=== PATIENT | male | born 1975 | race Caucasian/White ===

== ENCOUNTER 2019-06-02 07:38 | Outpatient (CLI) | payer MEDICAID, SELFPAY ==
--- NOTE | 2019-06-02 07:46 | US_ITS ---
WS: [id number] ULTRASOUND ABDOMEN LIMITED CLINICAL INFORMATION: RUQ ABD PAIN COMPARISON: None. FINDINGS: Liver Size: Normal. Craniocaudal length: 14.4 cm. Echogenicity: Normal. Surface nodularity: None. Mass (size and location): None. Bile ducts Intrahepatic ducts: Normal. Common bile duct diameter: 2.4 mm. Gallbladder Normal. Gallstones: None. Gallbladder sludge: None. Gallbladder wall thickening: None. Pericholecystic fluid: None. Sonographic Kay sign: Absent. Pancreas Normal as visualized. Right kidney: Normal. Hydronephrosis: None. Size: 12.5 cm x 4.1 cm x 4.0 cm. Abdominal aorta and IVC Visualized portions are normal. Ascites: None. US/US gall bladder [id number] IMPRESSION: 1. Liver is normal. No intrahepatic biliary ductal dilatation. 2. Normal gallbladder. 3. No hydronephrosis in right kidney. 4. Normal common bile duct.
== END 2019-06-02 07:39 | disposition home or self-care (01) ==
PROVIDERS: Family Provider Family Medicine; PCP Family Medicine; Visit Provider Family Medicine
DX: R10.11 Right upper quadrant pain (principal)
CPT/HCPCS: 76705

== ENCOUNTER 2020-01-20 13:57 | Emergency (ER) | payer MEDICAID, SELFPAY ==
[2020-01-20 14:01] VITALS: BP 130/84; PULSE 90; RESP 18; TEMP 36.8; O2SAT 97; BMI 23.5
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
[2020-01-20] MEDS: clindamycin 150 mg Capsule 300 MG PO (14:41)
--- NOTE | 2020-01-22 12:32 | DCPLANNER ---
leadership development manager had message to schedule a follow up appointment for patient with Wound Care. leadership development manager called the Wound Care clinic, spoke with Ignacia, gave clinic patients information. A follow up appointment was scheduled for Wednesday, January 24, 2020 at 1:00 with [employer] TECHNICI[employer]bil. leadership development manager called patient and gave patient the appointment information. Patient stated that he would attend the appointment.
--- NOTE | 2020-02-12 09:37 | DCPLANNER ---
Patient had a follow up appointment scheduled for 01.24.20 with Wound Care - patient did attend appointment.
== END 2020-01-20 14:45 | disposition home or self-care (01) ==
LOC: ER 14:36
PROVIDERS: Emergency Provider Emergency Medicine; PCP Family Medicine
DX: T65.894A Toxic effect of other specified substances, undetermined, initial encounter (principal); T24.412A Corrosion of unspecified degree of left thigh, initial encounter; T23.421A Corrosion of unspecified degree of single right finger (nail) except thumb, initial encounter; E11.9 Type 2 diabetes mellitus without complications
CPT/HCPCS: 12345; 99281

== ENCOUNTER 2020-01-24 13:11 | Outpatient (CLI) | payer MEDICAID, SELFPAY | END 2020-01-24 13:12 | disposition home or self-care (01) | LOC: WOUND 13:11 | PROVIDERS: PCP Family Medicine; Visit Provider Nurse Practitioner Family | DX: T24.222A Burn of second degree of left knee, initial encounter (principal); T23.241A Burn of second degree of multiple right fingers (nail), including thumb, initial encounter; T23.121A Burn of first degree of single right finger (nail) except thumb, initial encounter | CPT/HCPCS: 11042; 11045; 87070; 87077; 87176; 87186; 87205; G0463 ==

== ENCOUNTER 2020-01-31 10:15 | Outpatient (CLI) | payer MEDICAID, SELFPAY | END 2020-01-31 10:16 | disposition home or self-care (01) | LOC: WOUND 10:15 | PROVIDERS: PCP Family Medicine; Visit Provider Nurse Practitioner Family | DX: T24.202A Burn of second degree of unspecified site of left lower limb, except ankle and foot, initial encounter (principal); T23.241A Burn of second degree of multiple right fingers (nail), including thumb, initial encounter; T23.121A Burn of first degree of single right finger (nail) except thumb, initial encounter; X58.XXXA Exposure to other specified factors, initial encounter | CPT/HCPCS: 11042 ==

== ENCOUNTER 2020-02-07 10:17 | Outpatient (CLI) | payer MEDICAID, SELFPAY | END 2020-02-07 10:18 | disposition home or self-care (01) | LOC: WOUND 10:18 | PROVIDERS: PCP Family Medicine; Visit Provider Surgery | DX: E10.622 Type 1 diabetes mellitus with other skin ulcer (principal); L97.822 Non-pressure chronic ulcer of other part of left lower leg with fat layer exposed | CPT/HCPCS: 99212 ==

== ENCOUNTER 2020-02-08 14:20 | Outpatient (CLI) | payer MEDICAID, SELFPAY ==
[2020-02-08 15:10] LABS: Estmated Average Glucose 286; Hemoglobin A1C 11.6 % (4.0-6.0)
[2020-02-08 15:20] LABS: Alanine Aminotransferase 35 U/L (0-41); Albumin Level 4.6 g/dL (3.5-5.2); Alkaline Phosphatase 96 IU/L (40-130); Anion Gap 12.5 (5-19); Aspartate Amino Transferase 24 U/L (0-40); Blood Urea Nitrogen 25 mg/dL (6-20); Calcium 9.6 mg/dL (8.5-10.5); Carbon Dioxide 28 mmol/L (22-29); Chloride 92 mmol/L (98-107); Chol HDL Ratio 2.98 mg/dL (1.0-5.00); Cholesterol 161 mg/dL (0-200); Globulin 2.3 g/dL (1.3-4.6); Glomerular Filtration Rate 72.4 mL/min (90-130); Glucose 454 mg/dL (65-115); HDL Cholesterol 54 mg/dL (60-100); LDL Cholesterol Calculated 87 mg/dL (50-129); LDL HDL Ratio 1.61 RATIO (0.00-3.22); Osmolality Calculated 290 mOsm/kg (285-295); Potassium 4.5 mmol/L (3.5-5.1); Sodium 128 mmol/L (136-145); Total Bilirubin 0.4 mg/dL (0.15-1.2); Total Protein 6.9 g/dL (6.6-8.7); Triglycerides 101 mg/dL (0-150)
== END 2020-02-08 14:21 | disposition home or self-care (01) ==
LOC: LAB 14:22
PROVIDERS: PCP Family Medicine; Visit Provider Internal Medicine
DX: E10.22 Type 1 diabetes mellitus with diabetic chronic kidney disease (principal); N18.2 Chronic kidney disease, stage 2 (mild); E10.319 Type 1 diabetes mellitus with unspecified diabetic retinopathy without macular edema; E10.40 Type 1 diabetes mellitus with diabetic neuropathy, unspecified; E10.649 Type 1 diabetes mellitus with hypoglycemia without coma; Z79.4 Long term (current) use of insulin; E78.5 Hyperlipidemia, unspecified
CPT/HCPCS: 36415; 80053; 80061; 83036; 99205

== ENCOUNTER 2020-03-08 23:58 | Observation (INO) | payer MEDICAID, SELFPAY ==
[2020-03-09] VITALS (12 sets, daily range): BP systolic 125–197; BP diastolic 80–113; PULSE 79–98; RESP 14–23; TEMP 36.1–36.8; O2SAT 97–99; BMI 22.2
--- NOTE | 2020-03-09 00:07 | ECG_ITS ---
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 Measurements Intervals [place] Rate: 89 P: 65 [place]: 154 QRS: 85 QRSD: 86 T: 57 QT: 328 QTc: 400 Interpretive Statements SINUS RHYTHM Compared to ECG 11/23/2018 04:32:49 No significant changes Electronically Signed On 03-09-2020 11:29:28 STUD SHEEP FARMER by Ling Euceda M.D. [id number]
--- NOTE | 2020-03-09 00:07 | XRR_ITS ---
PROCEDURE INFORMATION: Exam: XR Chest, 1 View Exam date and time: 03/09/2020 2:16 AM Age: 44 years old Clinical indication: Chest pain; Additional info: Cp TECHNIQUE: Imaging protocol: XR of the chest Views: 1 view. COMPARISON: CR Chest 1 [place] [id number] 11/22/2018 10:40 PM FINDINGS: Lungs: Unremarkable. No consolidation. Pleural space: Unremarkable. No pleural effusion. No pneumothorax. Heart/Mediastinum: Unremarkable. No cardiomegaly. Bones/joints: Unremarkable. XR/XR chest 1V portable [id number] IMPRESSION: No acute findings.
--- NOTE | 2020-03-09 00:15 | W.ED.CHESTPA ---
HPI - Chest Pain General: Chief Complaint: Chest Pain Stated Complaint: cp/high bp/right arm pain Time Seen by Provider: 03/09/20 00:09 Source: patient Mode of arrival: ambulatory Limitations: no limitations History of Present Illness: HPI narrative: Cheo is a nice 44-year-old male comes in complaining of chest pain. He describes as a severe pain across the right side of his chest. He has pain that radiates down his right arm. He had associated diaphoresis, nausea and fatigue. Patient checked his blood pressure during this episode and find it to be markedly elevated. Patient states the symptoms come and go and he is unaware of any exacerbating or alleviating factors. Patient states currently his pain is just barely present but not completely gone. Denies having anything similar to this in the past. Associated symptoms: Reports diaphoresis and nausea; Deny abdominal pain, dyspnea, fever(s), palpitations, syncope or vomiting Review of Systems Const: Reports: diaphoresis; Denies: fever(s), chills, body aches, fatigue or malaise Eyes: Denies: change in vision, blurry vision, photophobia, eye discomfort, eye discharge, eye redness or yellow eyes ENMT: Denies: throat pain, odynophagia, hoarseness, swelling of lips/tongue, ear or mastoid pain, ear discharge, change in hearing or nasal discharge Card: Reports: chest pain; Denies: palpitations, irregular heart rhythm, edema, lightheadedness, syncope, pre-syncope, dyspnea on exertion or orthopnea Resp: Denies: dyspnea, productive cough, non-productive cough, wheezing, hemoptysis or chest congestion GI: Reports: nausea; Denies: abdominal pain, vomiting, hematemesis, coffee ground emesis, heartburn, diarrhea, constipation, GI cramping, hematochezia or melena : Denies: flank pain, dysuria, urinary frequency, urinary urgency or hematuria Musc: Denies: neck pain, back pain, extremity pain, extremity swelling, joint pain, joint swelling, joint redness, joint warmth or joint stiffness Skin/Breast: Denies: rash, pruritus, erythema, skin pain or skin tenderness Neuro: Denies: headache(s), numbness in extremities, weakness in extremities, sensory changes, lack of coordination, difficulty walking, dizziness, vertigo, confusion, Slurred speech present or seizure-like activity Juan Carlos/Lymph: Denies: easy bruising, easy bleeding, petechiae, purpura or enlarged lymph nodes All/Imm: Denies: urticaria, throat swelling, tongue swelling, facial swelling or acute wheezing PFSH ED PFSH: Medical History (Updated 03/09/20 @ 02:15 by Cordelia Tompkins) Detached retina Hypertension Type 1 diabetes Surgical History History of detached retina repair Family History Mother Cancer thyroid and breast Social History Smoking and tobacco status: former smoker Alcohol intake: current Alcohol intake frequency: holidays/special occasions only Physical Exam Const: COMMON NORMALS: no acute distress, patient oriented x3, no limitations and alert GENERAL APPEARANCE: cooperative HENMT: COMMON NORMALS: normocephalic, atraumatic, external ears normal, EAC's normal and Normal external nose present HEAD & SCALP: normal to inspection, normocephalic and atraumatic FACE & SINUS: normal facial exam and face symmetric NOSE: Normal external nose present and Normal nares present EXTERNAL EAR: Yes external ears normal EXTERNAL AUDITORY CANAL: EAC's normal MOUTH: Normal oral and palatal mucosa present, lip normal and tongue normal Eye: COMMON NORMALS: Equal, round and reactive pupils present and conjunctivae normal GENERAL EYE: appearance normal, both eyes and all related structures ALIGNMENT: Yes alignment normal PERIORBITAL: periorbital findings normal EYELID: eyelids normal CONJUNCTIVA: Yes conjunctivae normal SCLERA: sclerae normal PUPIL: Yes Equal, round and reactive pupils present Neck/C-Spine: COMMON NORMALS: full ROM, no lymphadenopathy, supple, no meningeal signs and no JVD GENERAL: Yes normal visual inspection and Yes trachea midline Chest: COMMONS NORMALS: normal inspection of the chest and normal palpation of entire chest wall Resp: COMMON NORMALS: normal respiratory effort, No retractions, No use of accessory muscles and clear to auscultation bilaterally EFFORT & INSPECTION: Yes able to speak in complete sentences and Yes symmetric chest movement AUSCULTATION: clear to auscultation bilaterally, no crackles, no rales, no rhonchi and no wheezes Cardio: COMMON NORMALS: no JVD, regular rate, regular rhythm, S1 normal heart sound present and S2 normal heart sound present RATE: regular rate RHYTHM: regular rhythm HEART SOUNDS: S1 normal heart sound present, S2 normal heart sound present, no click, no gallops, no murmurs and no rubs GI: COMMON NORMALS: Soft to palpation and No hepatosplenomegaly present PALPATION: Yes Soft to palpation, No Tenderness to palpation present (GI), No Guarding due to palpation present (GI), No Rigid due to palpation, Yes No hepatosplenomegaly present, No Hernia present, No Palpable mass present and No Pulsatile mass present : COMMON NORMALS: Yes no CVA tenderness BLADDER/KIDNEY EXAM: Yes no CVA tenderness Back/Pelvis: COMMON NORMALS: no CVA tenderness, thoracic and lumbar spine normal to inspection, no thoracic nor lumbar tenderness and thoraco-lumbar ROM normal Extremity: COMMON NORMALS: normal to inspection, full ROM, capillary refill normal, no joint enlargement, no clubbing, cyanosis or edema and no calf tenderness Neuro: COMMON NORMALS: patient oriented x3, CN's II-XII intact bilaterally, moves all extremities, no focal motor deficits and no sensory deficits noted SENSORIUM/ORIENTATION: Yes alert MENINGEAL SIGNS: Yes no meningeal signs SPEECH: speech normal Psych: COMMON NORMALS: mental status grossly normal, Normal thought process present, cooperative, normal affect, speech normal and activity/motor behavior normal SPEECH: Yes normal speech THOUGHT PROCESS: Normal thought process present Skin: COMMON NORMALS: no rashes or lesions noted, turgor normal, no jaundice, no petechiae and no mottling GENERAL SKIN EXAM: no rashes or lesions noted and turgor normal Course Vital Signs: Vital signs: Vital Signs Temperature 98.3 F 03/09/20 00:01 Pulse Rate 89 03/09/20 02:05 Respiratory Rate 23 H 03/09/20 02:05 Blood Pressure 150/92 03/09/20 02:05 Pulse Oximetry 99 03/09/20 02:05 MDM - Chest Pain MDM Narrative: Medical decision making narrative: Cheo is a 44-year-old male who comes in complaining of chest pain. Pain is in the center of his chest radiates into the right shoulder and down his right arm. Associated diaphoresis and shortness of breath and nausea with this. Patient has a heart score of 7. First EKG showed nonspecific changes in V2 but reviewed with human resources executive she did not believe this to be an acute danger. Patient understands his risks for further heart related issue so he agrees to stay for further evaluation and care. The case was reviewed with Dr. Ivy and he is agreeable to admission. Lab Data: Attestation: I reviewed the patient's lab results. Labs: Lab Results 03/09/20 03/09/20 03/09/20 Range/Units 00:32 00:32 00:32 WBC 6.2 (4.0-10.0) 10^3/ uL RBC 3.82 L (4.1-5.3) 10^6/u L Hgb 12.0 (11.7-16.6) g/dL Hct 35.6 L (42.0-52.0) % MCV 93.2 (80-94) fL MCH 31.4 (28.0-34.0) pg MCHC 33.7 (30.0-36.0) g/dL RDW 11.8 L (12.1-15.1) % Plt Count 292 (130-400) 10^3/c mm MPV 10.8 H (7.4-10.4) fL Neut % (Auto) 52.6 % Lymph % (Auto) 33.4 % [place] % (Auto) 9.2 % Eos % (Auto) 3.7 % Baso % (Auto) 1.1 % Neut # (Auto) 3.27 (1.8-7.7) 10^3/u L Lymph # (Auto) 2.1 (0.8-4.8) 10^3/u L [place] # (Auto) 0.6 (0.2-0.9) 10^3/u L Eos # (Auto) 0.2 (0.0-0.8) 10^3/u L Baso # (Auto) 0.1 (0.0-0.1) 10^3/u L Nucleated RBC % (a uto) 0 % Nucleated RBCs # 0.0 /100WBC Sodium 138 (136-145) mmol/L Potassium 4.2 (3.5-5.1) mmol/L Chloride 101 (98-107) mmol/L Carbon Dioxide 28 (22-29) mmol/L Anion Gap 13.2 (5-19) BUN 14 (6-20) mg/dL Creatinine 0.9 (0.7-1.2) mg/dL GFR Calculation 91.3 (90-130) mL/min Glucose 319 H (65-115) mg/dL Calculated Osmolal ity 299 H (285-295) mOsm/k g Calcium 9.4 (8.5-10.5) mg/dL Magnesium 2.0 (1.7-2.3) mg/dL Total Bilirubin 0.2 (0.15-1.2) mg/dL AST 30 (0-40) U/L ALT 59 H (0-41) U/L Alkaline Phosphata se 114 (40-130) IU/L Troponin T Baselin e 20 H (0-15) ng/L Total Protein 6.2 L (6.6-8.7) g/dL Albumin 4.4 (3.5-5.2) g/dL Globulin 1.8 (1.3-4.6) g/dL Lipase 9 L (13-60) U/L Imaging Data^: CXR: Attestation: I personally reviewed and interpreted this imaging study as follows: My impression: No acute cardiopulmonary findings. EKG Data^: EKG 1: Attestation: I personally reviewed and interpreted this EKG as follows: EKG interpretation date: 03/09/20 EKG interpretation time: 00:17 Interpretation: Normal sinus rhythm at 89 beats a minute, no blocks, normal intervals, normal axis, nonspecific ST-T wave changes. Similar to previous. Confirmed with Dr. Euceda. EKG 2: Attestation: I personally reviewed and interpreted this EKG as follows: EKG interpretation date: 03/09/20 EKG interpretation time: 01:49 Interpretation: Normal sinus rhythm at 90 beats a minute, normal axis, no blocks, normal intervals, no acute ST-T wave changes. Discharge Plan Discharge Patient Disposition: Placed in Observation Clinical Impression: Chest pain Qualifiers: Chest pain type: unspecified Qualified Code(s): R07.9 - Chest pain, unspecified Condition: Stable Referrals: Harpal Montanez MD [Primary Care Provider] - Coding Level of Care Code ED Fan Mail Editor for g Fwd Exam Comprehensive
[2020-03-09] MEDS: aspirin 325 mg Tablet PO (00:49)
[2020-03-09] MEDS: nitroglycerin 0.4 mg sublingual Tablet SUBLINGUAL (00:50)
[2020-03-09 00:53] LABS: Basophils # 0.1 10^3/uL (0.0-0.1); Basophils % 1.1 %; Eosinophils # 0.2 10^3/uL (0.0-0.8); Eosinophils % 3.7 %; Hematocrit 35.6 % (42.0-52.0); Lymphocytes # 2.1 10^3/uL (0.8-4.8); Lymphocytes % 33.4 %; Mean Corpuscular HGB Conc 33.7 g/dL (30.0-36.0); Mean Corpuscular Hemoglobin 31.4 pg (28.0-34.0); Mean Corpuscular Volume 93.2 fL (80-94); Mean Platelet Volume 10.8 fL (7.4-10.4); Monocytes # 0.6 10^3/uL (0.2-0.9); Monocytes % 9.2 %; Neutrophils # 3.27 10^3/uL (1.8-7.7); Neutrophils % 52.6 %; Nucleated Red Blood Cells % 0 %; Platelet Count 292 10^3/cmm (130-400); Red Blood Count 3.82 10^6/uL (4.1-5.3); Red Cell Distribution Width 11.8 % (12.1-15.1); White Blood Count 6.2 10^3/uL (4.0-10.0)
[2020-03-09 01:15] LABS: Alanine Aminotransferase 59 U/L (0-41); Albumin Level 4.4 g/dL (3.5-5.2); Alkaline Phosphatase 114 IU/L (40-130); Anion Gap 13.2 (5-19); Aspartate Amino Transferase 30 U/L (0-40); Blood Urea Nitrogen 14 mg/dL (6-20); Calcium 9.4 mg/dL (8.5-10.5); Carbon Dioxide 28 mmol/L (22-29); Chloride 101 mmol/L (98-107); Globulin 1.8 g/dL (1.3-4.6); Glomerular Filtration Rate 91.3 mL/min (90-130); Glucose 319 mg/dL (65-115); Lipase 9 U/L (13-60); Osmolality Calculated 299 mOsm/kg (285-295); Potassium 4.2 mmol/L (3.5-5.1); Sodium 138 mmol/L (136-145); Total Bilirubin 0.2 mg/dL (0.15-1.2); Total Protein 6.2 g/dL (6.6-8.7); Troponin(5th) Baseline 20 ng/L (0-15)
--- NOTE | 2020-03-09 01:39 | ECG_ITS ---
[facility] Test Date: 2020-03-09 Pat Name: Cheo Martin Department: Room: Gender: Male Ground Intelligence Officer: : 1975 Requested By: Cordelia Matamoros Order Number: [id number] Saeed MD: Ling Euceda M.D. Measurements Intervals [place] Rate: 90 P: 61 [place]: 145 QRS: 85 QRSD: 89 T: 53 QT: 318 QTc: 390 Interpretive Statements SINUS RHYTHM Compared to ECG 11/23/2018 04:32:49 No significant changes Electronically Signed On 03-09-2020 11:29:07 MIRROR FINISHING MACHINE OPERATOR by Ling Euceda M.D. [id number]
[2020-03-09] MEDS: nitroglycerin 1 gm/inch oint Pkt 1 INCH TOPICAL (02:04)
--- NOTE | 2020-03-09 02:07 | ECG_ITS ---
[facility] Test Date: 2020-03-09 Pat Name: Cheo Martin Department: Room: 102 Gender: Male Recruiting Assistant: trinh YUB: 1975 Requested By: Cordelia Matamoros Order Number: [id number] Saeed MD: Ling Euceda M.D. Measurements Intervals [place] Rate: 82 P: 61 [place]: 151 QRS: 72 QRSD: 82 T: 52 QT: 325 QTc: 380 Interpretive Statements SINUS RHYTHM Compared to ECG 03/09/2020 01:49:45 No significant changes Electronically Signed On 03-09-2020 11:34:49 AGILE SCRUM MASTER by Ling Euceda M.D. [id number]
[2020-03-09 02:30] LABS: Add Urine Microscopic? NO
--- NOTE | 2020-03-09 02:37 | P.HP_ITS ---
Providers/Chief Complaint Primary Care Provider: Harpal Montanez MD Chief Complaint: cp/high bp/right arm pain History of Present Illness Cheo Martin is a 44 year old male with a past medical history of insulin- dependent type 1 diabetes, hypertension, hyperlipidemia, who presents to [facility] due to chest pain. Patient tells me that this evening, he just had finished up supper, was cleaning up when he developed severe substernal chest pain, pressure-like pain, radiating up to the right shoulder, to the back, associate with lightheadedness, dizziness, diaphoresis, shortness of breath, lasting about 4 minutes, the pain went away on its own. However a few minutes later, pain returned his who is a retired RN, checked up on him, she advised him to sit down, pain abated, she advised him to come to the emergency room, however patient stated that he would just watch some TV and the pain would go away. However he had 2 more episodes of chest pain before he decided to come to the emergency room. Denies a history of cardiovascular disease. Denies history of stenting. Does state he had a negative stress test about a year ago. Patient states that he received 3 nitro glycerin's, before the pain abated. Currently has a nitro patch on. States that currently having just very minimal pain. In the ER his troponin at baseline was 20, EKG normal sinus rhythm. Hospitalist team was called for admission Review of Systems Const: Denies: fever(s), chills, fatigue or malaise Eyes: Denies: change in vision or blurry vision ENMT: Denies: nasal congestion Card: Reports: chest pain and lightheadedness Resp: Denies: dyspnea, productive cough, non-productive cough or wheezing GI: Denies: abdominal pain, nausea, vomiting, hematemesis, diarrhea, constipation, hematochezia or melena : Denies: flank pain, difficulty urinating, dysuria or urinary frequency Musc: Denies: neck pain or back pain Skin/Breast: Denies: rash Neuro: Denies: headache(s), dizziness or vertigo Psych: Denies: anxiety or depression Endo: Denies: polyuria or polydipsia Medications/Allergies Home Medications Medication Instructions Recorded Confirmed Last Taken Type flash glucose scanning reader #1 each 02/08/20 02/08/20 Unknown Rx gabapentin 600 mg tablet 600 mg PO TID 02/08/20 02/08/20 Unknown History hydrochlorothiazide 25 mg tablet 25 mg PO DAILY 02/08/20 02/08/20 Unknown History insulin glargine 100 unit/mL (3 45 unit SUBCUT DAILY ml 02/08/20 02/08/20 Unknown History mL) subcutaneous pen insulin lispro 100 unit/mL See Rx Instructions SUBCUT TID 02/08/20 02/08/20 Unknown History subcutaneous pen lisinopril 10 mg tablet 10 mg PO BID 02/08/20 02/08/20 Unknown History simvastatin 10 mg tablet 10 mg PO DAILY 02/08/20 02/08/20 Unknown History valacyclovir 500 mg tablet 500 mg PO TID tab 02/08/20 02/08/20 Unknown History blood-glucose meter,continuous #1 each 02/29/20 Unknown Rx blood-glucose sensor #3 each 02/29/20 Unknown Rx blood-glucose transmitter #9 each 02/29/20 Unknown Rx Allergies Allergy/AdvReac Type Severity Reaction Status Date / Time Penicillins Allergy ALGY-Anaphy Verified 02/08/20 13:07 laxis PFSH Acute PFSH: Medical History (Updated 03/09/20 @ 02:43 by Ayad Ivy MD) Detached retina Hypertension Type 1 diabetes Surgical History History of detached retina repair Family History (Updated 03/09/20 @ 02:41 by Ayad Ivy MD) Mother Cancer thyroid and breast Unknown CAD (coronary artery disease) from [place] at 55 Social History Smoking and tobacco status: former smoker Alcohol intake: current Alcohol intake frequency: holidays/special occasions only Vitals/I&O/Wt Last Vital Signs Temp 98.3 F 03/09/20 00:01 Pulse 89 03/09/20 02:05 Resp 23 H 03/09/20 02:05 BP 150/92 03/09/20 02:05 Pulse Ox 99 03/09/20 02:05 Weight last 48 hrs Weight 64.41 kg Physical Exam Const: COMMON NORMALS: no acute distress and patient oriented x3 GENERAL APPEARANCE: cooperative and comfortable HENMT: COMMON NORMALS: normocephalic HEAD & SCALP: normocephalic Eye: COMMON NORMALS: Equal, round and reactive pupils present and EOMs intact bilaterally GENERAL EYE: appearance normal, both eyes and all related structures PUPIL: Yes Equal, round and reactive pupils present Neck/C-Spine: COMMON NORMALS: full ROM, no lymphadenopathy, no JVD and Thyroid normal THYROID: Thyroid normal Lymph: LYMPHATIC: no lymphadenopathy noted Resp: COMMON NORMALS: normal respiratory effort, No retractions, No use of accessory muscles and clear to auscultation bilaterally AUSCULTATION: clear to auscultation bilaterally Cardio: COMMON NORMALS: no JVD, regular rate, regular rhythm, S1 normal heart sound present, S2 normal heart sound present, No gallops present (Cardio), No clicks present (Cardio) and No murmurs present (Cardio) RATE: regular rate RHYTHM: regular rhythm HEART SOUNDS: S1 normal heart sound present and S2 normal heart sound present GI: COMMON NORMALS: Normal to inspection, nondistended, normoactive bowel sounds present, Soft to palpation, non-tender and No hepatosplenomegaly present PALPATION: Yes Soft to palpation and Yes No hepatosplenomegaly present Extremity: COMMON NORMALS: normal to inspection, full ROM and no pedal edema Neuro: COMMON NORMALS: patient oriented x3, CN's II-XII intact bilaterally, moves all extremities and no focal motor deficits Psych: COMMON NORMALS: mental status grossly normal, Normal thought process present and cooperative THOUGHT PROCESS: Normal thought process present Data : 03/09/20 00:32 03/09/20 00:32 A&P Assessment and plan (1) Chest pain: -Sounds cardiac in etiology -Risk factors of type 1 diabetes, hypertension, hyperlipidemia -Baseline troponin 20, EKG normal sinus rhythm -Stress test on November 24, 2018 showed low probability of significant coronary artery disease PLAN: -Admit to cardiac stepdown unit -Aspirin, statin, beta-marielle, therapeutic Lovenox -We will order cardiac echocardiogram -Serial troponins, serial EKGs, monitor for chest pain -If patient were to have worsening chest pain, elevated troponins will consult cardiology -We will discuss with cardiology in the a.m. about possible angiography Status: Acute Qualifiers: Chest pain type: unspecified Qualified Code(s): R07.9 - Chest pain, unspecified (2) Diabetes mellitus due to underlying condition with stage 2 chronic kidney disease: Status: Acute (3) Hyperlipidemia: Status: Acute (4) Type 1 diabetes: -Continue Lantus 45 units a.m., insulin sliding scale Status: Acute (5) Hypertension: -Needs better blood pressure control, continue lisinopril Status: Acute Attestations Medical Necessity Statement*: Patient requires hospitalization, chest pain, outpatient with observation Coding Level of Care Code Acute Inbound Customer Service Representative for [facility] Fwd Diagnoses Chest pain R07.9 Chest pain type: unspecified Diabetes mellitus due to underlying condition with stage 2 chronic kidney disease E08.22; N18.2 Hyperlipidemia E78.5 Type 1 diabetes E10.9 Hypertension I10
[2020-03-09 02:38] LABS: Bilirubin Urine Neg (Negative); Blood Urine Neg (Negative); Glucose Urine UA 4+ (Normal); Ketones Urine Negative (Negative); Leukocyte Esterase Urine Negative (Negative); Nitrate Urine Negative (Negative); Protein Urine Neg (Negative); Urine Appearance Clear (CLEAR); Urine Color Yellow (Yellow); Urobilinogen Urine Norm (Negative); pH Urine 7 (5-7)
[2020-03-09 03:07] LABS: Troponin 5 2HR 18.88 ng/L (0-15)
--- NOTE | 2020-03-09 03:12 | USCV_ITS ---
Cheo Martin Age: 44 Gender: M : 1975 Exam Date: 03/09/2020 07:05 Ordering Phys: Ayad Ivy MD Technologist: Janeth Fatima Exam Location: [facility] [place] Indication: Chest pain BP: 159 / 101 HR: 104 Rhythm: Sinus Technical Quality: Adequate MEASUREMENTS (Male / Female) Normal Values 2D ECHO LV Diastolic Diameter PLAX 3.0 cm 4.2 - 5.9 / 3.9 - 5.3 cm LV Systolic Diameter PLAX 1.8 cm LV Chamber Size 3.5 cm IVS Diastolic Thickness 1.4 cm 0.6 - 1.0 / 0.6 - 0.9 cm IVS Systolic Thickness 1.8 cm LVPW Diastolic Thickness 0.9 cm 0.6 - 1.0 / 0.6 - 0.9 cm LVPW Systolic Thickness 1.3 cm RV Chamber Size 1.7 cm LVOT Diameter 1.8 cm LV Ejection Fraction 2D Teich 73.0 % LV Ejection Fraction MOD 2C 68.5 % LV Ejection Fraction 2C AL 70.9 % LA Diameter 2.4 cm LA Width 3.2 cm LA Height 4.0 cm RA Width 2.6 cm RA Height 3.8 cm Aorta at Sinotubular Diameter 3.3 cm M-MODE LV Diastolic Diameter MM 5.2 cm 4.2 - 5.9 / 3.9 - 5.3 cm LV Systolic Diameter MM 3.3 cm LV Ejection Fraction MM Teich 65.0 % IVS Diastolic Thickness MM 0.8 cm 0.6 - 1.0 / 0.6 - 0.9 cm IVS Systolic Thickness MM 1.1 cm LVPW Diastolic Thickness MM 1.1 cm 0.6 - 1.0 / 0.6 - 0.9 cm LVPW Systolic Thickness MM 1.2 cm Aortic Annulus Diameter 3.5 cm LA Ao Ratio MM 0.9 MV E Point Septal Separation 0.4 cm DOPPLER AV Peak Velocity 87.0 cm/s LVOT Peak Velocity 77.0 cm/s AV Area Cont Eq vti 2.7 cm squared AV Area Cont Eq pk 2.2 cm squared MV Area PHT 5.0 cm squared Mitral E to A Ratio 1.5 MV E' Velocity 56.5 cm/s Mitral E to MV E' Ratio 9.3 Mitral E to LV E' Lateral Ratio 8.4 Mitral E to LV E' Septal Ratio 10.6 TV Peak E Velocity 45.0 cm/s Right Atrial Pressure 3.0 mmHg PV Peak Velocity 83.0 cm/s RV Acceleration Time 0.1 s RV Ejection Time 0.3 s RV AcT/ET 0.5 FINDINGS Left Ventricle Normal left ventricular size, systolic function and wall thickness, with no regional wall motion abnormalities. Left ventricular ejection fraction is estimated at 62 %. Normal diastolic function. Right Ventricle Normal right ventricular size and systolic function. Tricuspid valve regurgitant jet is inadequate for estimation of regional wall motion abnormality. Right Atrium Normal right atrial size. Right atrial pressure stimated at 3 mm Hg. Left Atrium Normal left atrial size. Mitral Valve Structurally normal mitral valve. No mitral valve stenosis. No mitral valve regurgitation. Aortic Valve Structurally normal trileaflet aortic valve. No aortic valve stenosis. No aortic valve regurgitation. Tricuspid Valve Structurally normal tricuspid valve. No tricuspid valve stenosis. Trace tricuspid valve regurgitation. Pulmonic Valve Structurally normal pulmonic valve. No pulmonary valve stenosis. Trace pulmonary valve regurgitation. Pericardium No pericardial effusion. Aorta Normal size aortic root and proximal ascending aorta. Normal sized inferior vena cava. CONCLUSIONS 1. Normal left ventricular size, systolic function and wall thickness, with no regional wall motion abnormalities. Left ventricular ejection fraction is estimated at 62 %. Normal diastolic function. 2. Normal pulmonary artery pessure. 3. No significant valvular abnormality. 4. Right atrial pressure estimated at 3 mm Hg. 5. No prior similar studies to compare. Ling Euceda MD (Electronically Signed) Final Date: 09 March 2020 12:27 S
[2020-03-09 03:25] LABS: Troponin 5 2HR Delta -1.12 ABS# (0-10)
[2020-03-09] MEDS: carvedilol 3.125 mg Tablet PO ×2 (03:49→14:48)
[2020-03-09] MEDS: amlodipine 10 mg Tablet PO (03:49)
[2020-03-09] MEDS: atorvastatin 40 mg Tablet PO (03:49)
[2020-03-09] MEDS: sodium chloride 0.9% 1,000 ML 100 ML IV (03:50)
[2020-03-09] MEDS: enoxaparin 60 mg/0.6 mL Syringe SUBCUT ×2 (03:50→14:48)
[2020-03-09 05:13] LABS: Basophils # 0.1 10^3/uL (0.0-0.1); Basophils % 0.8 %; Eosinophils # 0.2 10^3/uL (0.0-0.8); Eosinophils % 3.7 %; Hematocrit 36.8 % (42.0-52.0); Hemoglobin 12.3 g/dL (11.7-16.6); Lymphocytes # 1.9 10^3/uL (0.8-4.8); Lymphocytes % 30.5 %; Mean Corpuscular HGB Conc 33.4 g/dL (30.0-36.0); Mean Corpuscular Hemoglobin 31.5 pg (28.0-34.0); Mean Corpuscular Volume 94.4 fL (80-94); Mean Platelet Volume 10.6 fL (7.4-10.4); Monocytes # 0.5 10^3/uL (0.2-0.9); Neutrophils # 3.56 10^3/uL (1.8-7.7); Neutrophils % 56.8 %; Nucleated Red Blood Cells % 0 %; Platelet Count 284 10^3/cmm (130-400); Red Cell Distribution Width 11.9 % (12.1-15.1); White Blood Count 6.3 10^3/uL (4.0-10.0)
[2020-03-09 05:29] LABS: Anion Gap 12.2 (5-19); Blood Urea Nitrogen 15 mg/dL (6-20); Calcium 9.4 mg/dL (8.5-10.5); Carbon Dioxide 29 mmol/L (22-29); Chloride 102 mmol/L (98-107); Glomerular Filtration Rate 91.3 mL/min (90-130); Glucose 303 mg/dL (65-115); Osmolality Calculated 300 mOsm/kg (285-295); Potassium 4.2 mmol/L (3.5-5.1); Sodium 139 mmol/L (136-145)
--- NOTE | 2020-03-09 06:39 | ECG_ITS ---
[facility] Test Date: 2020-03-09 Pat Name: Cheo Martin Department: Room: 102 Gender: Male Sanitation Supervisor: joyce : 1975 Requested By: Cordelia Matamoros Order Number: [id number] Christophe MD: Ling Euceda M.D. Measurements Intervals [place] Rate: 79 P: 78 CA: 168 QRS: 81 QRSD: 89 T: 66 QT: 332 QTc: 381 Interpretive Statements SINUS RHYTHM INDETERMINATE AXIS Compared to ECG 03/09/2020 04:05:17 Indeterminate axis now present Electronically Signed On 03-09-2020 11:33:37 LOADING MANAGER by Ling Euceda M.D. [id number]
[2020-03-09 07:13] LABS: Glucose Point of Care 211 mg/dL (70-110)
[2020-03-09] MEDS: gabapentin 300 mg Capsule 600 MG PO ×3 (09:35→19:17)
[2020-03-09] MEDS: aspirin 81 mg EC Tablet PO (09:35)
[2020-03-09] MEDS: lisinopril 10 mg Tablet PO ×2 (09:35→19:17)
--- NOTE | 2020-03-09 09:55 | PC.NURSE ---
novolog checked off late due to pt not being in pyxis. novolog and lantus not administered due to pt stating, well that 4 units will make me crash since im not eating. dr roa notified and decided to hold until further notice. pt took rest of morning meds. no needs identified at this time, call light within reach.
[2020-03-09] MEDS: acetaminophen 325 mg Tablet 650 MG PO ×2 (10:45→21:01)
[2020-03-09 10:58] LABS: Glucose Point of Care 153 mg/dL (70-110)
--- NOTE | 2020-03-09 11:55 | PC.CHAP ---
Pastoral Care Encounter/Spiritual Assessment Type of Contact [] Declined surveyor oil well directional visit [] Patient/Family/Request visit [] Outpatient visit [] Follow-up visit [] Physician referral [] Code/Alert [X] Routine visit [] Staff referral [] Actively dying [] Patient sleeping [] Family support [] [] Out of room [] Palliative care [] [] Receiving care in room [] Pre-surgical visit [] Trauma [] Long length of stay [] ICU visit [] Other: Relational/Emotional Strength [] Patient feels connected with others/family/visitors/staff [] Distress [] Loneliness/isolation [] Abandonment Spirituality of Patient [] Person of Carina [] Attends Amish of their Carina [] Believes in Prayer [] Reads Bible or Orthodox materials [] There are Spiritual issues to be addressed Paramedic Rn Interventions [] Prayer [] Active listening [] Non-anxious presence [] Spiritual/emotional support [] Crisis/trauma care [] Spiritual counseling [] Bereavement support [] Provided bereavement packet [] Provided Bible/devotional materials [] Provided toy/stuffed animal, coloring book to patient or family member [] Provided Communion [] Anointing/North [] Salvation [] Completed spiritual assessment [] Other: Impact on Illness or Injury [] Angry [] Fearful [] Anxious [] Often cries [] Exhaustion [] Unable to work [] Unable to attend taoist [] Unable to walk/stand [] Unable to read [] Unable to drive [] Unable to eat/drink [] Unable to sleep [] Unable to be with family [] Patient intubated [] Other: Summary Time spent with patient
--- NOTE | 2020-03-09 13:25 | PM.PN ---
Subjective Subjective: Interval history: Feels better this morning. States the chest pain is much improved after being given nitro and having Nitropatch paste on. However intermittent still some discomfort persisting. No new changes on EKG. Troponin series remain negative. Medications: Reviewed: Yes Vitals/I&O/Wt Last Vital Signs Temp 97.7 F 03/09/20 03:22 Pulse 98 03/09/20 12:00 Resp 18 03/09/20 12:00 BP 133/82 03/09/20 12:00 Pulse Ox 99 03/09/20 03:22 Weight last 48 hrs Weight 64.41 kg Physical Exam Narrative: EXAM NARRATIVE: GEN: Awake, alert and oriented, no acute distress CVS: S1S2 N RS: CTA B/L Abd: Soft, nt/nd , bs+ STORE PLANNER: no focal neuro deficits Data : 03/09/20 04:09 03/09/20 04:09 A&P Assessment and plan (1) Chest pain: -Troponin series negative delta's, states chest pain is improved, intermittent discomfort. May represent unstable angina. Patient reports the last time he had stress test he continued to experience chest pain for 2 weeks afterwards and is not keen on undergoing this test again. -Risk factors of type 1 diabetes, hypertension, hyperlipidemia -Stress test on November 24, 2018 showed low probability of significant coronary artery disease -continue Aspirin, statin, beta-marielle, therapeutic Lovenox -Echocardiogram with normal ventricular size systolic function no regional wall motion abnormalities. LVEF 62%. Normal diastolic function. -Cardiology consult to assess for need of possible angiogram Status: Acute Qualifiers: Chest pain type: unspecified Qualified Code(s): R07.9 - Chest pain, unspecified (2) Diabetes mellitus due to underlying condition with stage 2 chronic kidney disease: Status: Acute (3) Hyperlipidemia: Status: Acute (4) Type 1 diabetes: -Continue Lantus 45 units a.m., insulin sliding scale Status: Acute (5) Hypertension: -Needs better blood pressure control, continue lisinopril Status: Acute Attestations Medical Necessity Statement*: Monitoring for chest pain, pending cardiology consult. Coding Level of Care Code Acute Staff Electronic Warfare Officer for [facility] Diagnoses Chest pain R07.9 Chest pain type: unspecified Diabetes mellitus due to underlying condition with stage 2 chronic kidney disease E08.22; N18.2 Hyperlipidemia E78.5 Type 1 diabetes E10.9 Hypertension I10
--- NOTE | 2020-03-09 14:34 | P.CONIM_ITS ---
Providers/Reason For Consult Consulting Physican/Specialty*: Dr. Euceda, Cardiology Reason for Consult*: Chest pain Attending Physician: Radha Shoko MD Primary Care Provider: Harpal Montanez MD History of Present Illness History of Present Illness Cheo Martin is a 44 year old male with PMhx of poorly controlled type 1 DM (MlB3B=50.6) on insulin x last 25 years, diabetic retinopathy s/p multiple sx and left eye blindness, diabetic neuropathy, hypertension and h/o tobacco jennifer wing (5 cans/day x several years; quit 3-4 years back). She presented for evaluation of chest pain. Chest pain right sided with radiation to right shoulder and right arm and forearm. This was not related to exertion or respiration. He had associated clamminess,sweating and nausea without any vomiting. He came to the ER and received ASA, lovenox, NTG SLx 3 and nitro patch. He has been chest pain free since being in the hospital. Troponin x 3 negative, EKG without any significant ST-T wave changes. I have been asked to evaluate the patient for further management. Review of Systems General: Reports: 10 or more systems reviewed and unremarkable except in HPI and below Const: Reports: chills; Denies: fever(s), body aches or fatigue Eyes: Denies: change in vision ENMT: Denies: nasal congestion Card: Reports: chest pain; Denies: palpitations, dyspnea on exertion or orthopnea Resp: Denies: dyspnea GI: Reports: abdominal pain; Denies: nausea, vomiting, hematochezia or melena : Denies: flank pain or hematuria Musc: Denies: extremity swelling Skin/Breast: Denies: rash Neuro: Reports: headache(s); Denies: Slurred speech present Psych: Denies: anxiety or depression Juan Carlos/Lymph: Denies: petechiae or purpura All/Imm: Denies: urticaria Meds/Allergies Home Medications and Allergies Home Medications Medication Instructions Recorded Confirmed Last Taken Type flash glucose scanning reader #1 each 02/08/20 02/08/20 Unknown Rx gabapentin 600 mg tablet 600 mg PO TID 02/08/20 03/09/20 03/08/20 21:00 History insulin glargine 100 unit/mL (3 45 unit SUBCUT DAILY ml 02/08/20 03/09/20 03/08/20 08:00 History mL) subcutaneous pen insulin lispro 100 unit/mL See Rx Instructions SUBCUT TID 02/08/20 03/09/20 03/08/20 History subcutaneous pen lisinopril 10 mg tablet 10 mg PO BID 02/08/20 03/09/20 03/08/20 18:00 History simvastatin 10 mg tablet 10 mg PO DAILY 02/08/20 03/09/20 03/08/20 08:00 History valacyclovir 500 mg tablet 500 mg PO TID tab 02/08/20 03/09/20 03/08/20 21:00 History blood-glucose meter,continuous #1 each 02/29/20 Unknown Rx blood-glucose sensor #3 each 02/29/20 Unknown Rx blood-glucose transmitter #9 each 02/29/20 Unknown Rx pantoprazole [Protonix] 40 mg PO DAILY 03/09/20 03/09/20 03/08/20 08:00 History Allergies Allergy/AdvReac Type Severity Reaction Status Date / Time Penicillins Allergy ALGY-Anaphy Verified 03/09/20 06:33 laxis Current Medications Current Medications Generic Name Dose Route Start Last Admin Trade Name Freq PRN Reason Stop Dose Admin Acetaminophen 650 mg 03/09/20 03:12 03/09/20 10:45 Tylenol PO 650 mg Q6H PRN Administration Mild/Mod Pain Or Temp >/= 101 Amlodipine Besylate 10 mg 03/09/20 03:12 03/09/20 03:49 Norvasc PO 10 mg Q24H PEPITO Administration Aspirin 81 mg 03/09/20 09:00 03/09/20 09:35 Aspirin Ec PO 81 mg DAILY PEPITO Administration Atorvastatin Calcium 40 mg 03/09/20 03:12 03/09/20 03:49 Lipitor PO 40 mg Q24H PEPITO Administration Carvedilol 3.125 mg 03/09/20 03:12 03/09/20 03:49 Coreg PO 3.125 mg Q12H PEPITO Administration Enoxaparin Sodium 60 mg 03/09/20 03:30 03/09/20 03:50 Lovenox SUBCUT 60 mg Q12H PEPITO Administration Gabapentin 600 mg 03/09/20 09:00 03/09/20 09:35 Neurontin PO 600 mg TID PEPITO Administration Insulin Aspart 0 unit 03/09/20 08:00 03/09/20 11:43 Novolog SUBCUT Not Given TIDWM [facility] Protocol Insulin Glargine 45 unit 03/09/20 09:00 03/09/20 09:38 Lantus SUBCUT Not Given DAILY [facility] Lisinopril 10 mg 03/09/20 09:00 03/09/20 09:35 Prinivil PO 10 mg BID PEPITO Administration Nitroglycerin 0.4 mg 03/09/20 00:13 03/09/20 00:50 Nitrostat SUBLINGUAL 0.4 tab Q5M PRN Administration CHEST PAIN PFSH Acute PFSH: Medical History (Updated 03/09/20 @ 14:56 by Ling Euceda MD) Detached retina Hypertension Type 1 diabetes Surgical History History of detached retina repair Family History (Updated 03/09/20 @ 02:41 by Ayad Ivy MD) Mother Cancer thyroid and breast Unknown CAD (coronary artery disease) from [place] at 55 Social History Smoking and tobacco status: former smoker Alcohol intake: current Alcohol intake frequency: holidays/special occasions only Vitals/I&O/Wt Last Vital Signs Temp 97.7 F 03/09/20 03:22 Pulse 98 03/09/20 12:00 Resp 18 03/09/20 12:00 BP 133/82 03/09/20 12:00 Pulse Ox 99 03/09/20 03:22 Weight last 48 hrs Weight 142 lb Physical Exam Narrative: EXAM NARRATIVE: Gen: lying in bed in NAD HEENT: PEERL, No pallor, icterus; left eye blindness+ Neck: No JVD RS: CTAB/L, No wheezing, rhonchi or rales CVS: S1, S2 normal , No murmur, rub or gallop MANGLE ROLL OPERATOR: AAOx 3, No FND Ext: No cyanosis, edema; 2+ distal pulses Skin: No rashes Data Imaging^: Echo: I personally reviewed and interpreted this imaging study as follows: My impression: CONCLUSIONS 1. Normal left ventricular size, systolic function and wall thickness, with no regional wall motion abnormalities. Left ventricular ejection fraction is estimated at 62 %. Normal diastolic function. 2. Normal pulmonary artery pessure. 3. No significant valvular abnormality. 4. Right atrial pressure estimated at 3 mm Hg. 5. No prior similar studies to compare. A&P Assessment and plan (1) Chest pain: Recurrent episodes of chest pain since yesterday. -Multiple CAD risk factors. H/o massive [place] in 1st paternal cousin at age 53 -normal stress test last year without any ischemia. -Plan for [facility] with Dr. Kruger in morning. Status: Acute Qualifiers: Chest pain type: unspecified Qualified Code(s): R07.9 - Chest pain, unspecified (2) Hypertension: Status: Acute Qualifiers: Hypertension type: essential hypertension Qualified Code(s): I10 - Essential (primary) hypertension (3) Type 1 diabetes: Status: Acute Qualifiers: Diabetes mellitus complication status: with ophthalmic complications (4) Hyperlipidemia: Status: Acute Qualifiers: Hyperlipidemia type: mixed hyperlipidemia Qualified Code(s): E78.2 - Mixed hyperlipidemia Additional A&P Information Daibetic retinopathy Diabetic neuropathy Thank you for allowing me to participate in patient's care. Please feel free to call with questions or concerns. Consult Attestations Medical Necessity Statement: Needs hospital stay for cp Coding Level of Care Code New Pt Acute Field Automobile Adjuster for g Fwd Patient Type New History Comprehensive Exam Comprehensive Diagnoses Chest pain R07.9 Chest pain type: unspecified Hypertension I10 Hypertension type: essential hypertension Type 1 diabetes E10.9 Diabetes mellitus complication status: with ophthalmic complications Hyperlipidemia E78.2 Hyperlipidemia type: mixed hyperlipidemia Time Spent (min) 40
[2020-03-09] MEDS: insulin glargine 100 units/1 mL 20 UNIT SUBCUT (14:48)
[2020-03-09 16:10] LABS: SARS Covid-2 Antigen Negative (Negative)
[2020-03-09 18:03] LABS: Glucose Point of Care 228 mg/dL (70-110)
[2020-03-09 19:45] LABS: Glucose Point of Care 201 mg/dL (70-110)
[2020-03-09 23:03] LABS: Glucose Point of Care 170 mg/dL (70-110)
--- NOTE | 2020-03-09 23:25 | PC.NURSE ---
Patient has no complaints at this time. Will monitor.
[2020-03-10] VITALS (7 sets, daily range): BP systolic 115–137; BP diastolic 74–93; PULSE 80–85; RESP 12–18; TEMP 36.3–36.9; O2SAT 95–99
--- NOTE | 2020-03-10 00:36 | PC.NURSE ---
Patient refused his 1800 Novolog stating, I'm a brittle diabetic and I know my body.
[2020-03-10] MEDS: carvedilol 3.125 mg Tablet PO (02:49)
[2020-03-10] MEDS: enoxaparin 60 mg/0.6 mL Syringe SUBCUT (02:50)
[2020-03-10] MEDS: atorvastatin 40 mg Tablet PO (02:50)
[2020-03-10] MEDS: amlodipine 10 mg Tablet PO (02:50)
[2020-03-10 05:04] LABS: Basophils # 0.1 10^3/uL (0.0-0.1); Basophils % 0.8 %; Eosinophils # 0.1 10^3/uL (0.0-0.8); Eosinophils % 2.4 %; Hematocrit 37.7 % (42.0-52.0); Hemoglobin 12.5 g/dL (11.7-16.6); Lymphocytes # 1.9 10^3/uL (0.8-4.8); Lymphocytes % 32.2 %; Mean Corpuscular HGB Conc 33.2 g/dL (30.0-36.0); Mean Corpuscular Hemoglobin 31.2 pg (28.0-34.0); Mean Platelet Volume 10.6 fL (7.4-10.4); Monocytes # 0.5 10^3/uL (0.2-0.9); Monocytes % 8.3 %; Neutrophils # 3.31 10^3/uL (1.8-7.7); Neutrophils % 56.1 %; Nucleated Red Blood Cells % 0 %; Platelet Count 283 10^3/cmm (130-400); Red Blood Count 4.01 10^6/uL (4.1-5.3); Red Cell Distribution Width 11.8 % (12.1-15.1); White Blood Count 5.9 10^3/uL (4.0-10.0)
[2020-03-10 05:28] LABS: Alanine Aminotransferase 53 U/L (0-41); Albumin Level 3.9 g/dL (3.5-5.2); Alkaline Phosphatase 104 IU/L (40-130); Anion Gap 10.4 (5-19); Aspartate Amino Transferase 37 U/L (0-40); Blood Urea Nitrogen 13 mg/dL (6-20); Calcium 9.2 mg/dL (8.5-10.5); Carbon Dioxide 28 mmol/L (22-29); Chloride 104 mmol/L (98-107); Glomerular Filtration Rate 104.5 mL/min (90-130); Glucose 135 mg/dL (65-115); Osmolality Calculated 290 mOsm/kg (285-295); Phosphorus 4.1 mg/dL (2.5-4.5); Potassium 3.4 mmol/L (3.5-5.1); Sodium 139 mmol/L (136-145); Total Bilirubin 0.2 mg/dL (0.15-1.2); Total Protein 5.9 g/dL (6.6-8.7)
[2020-03-10 05:34] LABS: Cholesterol 139 mg/dL (0-200); HDL Cholesterol 48 mg/dL (60-100); LDL Cholesterol Calculated 64 mg/dL (50-129); LDL HDL Ratio 1.33 RATIO (0.00-3.22); Triglycerides 134 mg/dL (0-150)
[2020-03-10 05:50] LABS: Glucose Point of Care 143 mg/dL (70-110)
[2020-03-10] MEDS: diphenhydrAMINE 50 mg Capsule PO (06:51)
[2020-03-10] MEDS: sodium chloride 0.9% 1,000 ML 100 ML IV (06:51)
[2020-03-10 06:54] LABS: Glucose Point of Care 133 mg/dL (70-110)
--- NOTE | 2020-03-10 07:02 | XACV_ITS ---
Exam Room: [facility] Ht: 170 cm Wt: 64 kg BSA: 1.75 m2 Gender: Male : 1975 Any Known Allergies: Penicillins Exam Priority: Routine Procedure(s): Procedure Description: Diagnostic procedure Procedure Description: Left Heart Catheterization Procedure Description: Left ventriculography Procedure Description: Coronary angiography Diagnostic Cath Status: Urgent Diagnostic Findings * Left main artery: Minor luminal irregularities. LAD: It gives rise to a large diagonal branch. There is no significant stenosis in the LAD or the diagonal artery. LCx: Minor luminal irregularities are noted. It gives rise to 3 OM branches which are free of significant disease. RCA: RCA arises fromright coronary cusp and is a large vessel. It gives rise to PDA and PLV branches. Minor irregularities are noted without any significant stenosis.. * No significant disease noted in the Left Main, LAD, Circumflex, or RCA coronary arteries. * Coronary angiography shows right dominance. Conclusions 1. No significant disease noted in the Left Main, LAD, Circumflex, or RCA coronary arteries. 2. Normal left ventricular systolic function. Ejection fraction of 65%. Recommendations * Continue current medical management and risk factor modification. Diagnostic RX Recommendation: medical therapy and/or counseling Ventriculography Ejection Fraction: 65.0 % Pressures Phase:Rest AO : 115 / 65 ( 89 ) @ 2:24:00 AM 117 / 45 ( 79 ) @ 2:24:00 AM LV : 119 / -9 / @ 2:23:00 AM 119 / -9 / @ 2:23:00 AM 117 / -7 / @ 2:24:00 AM 117 / -7 / @ 2:24:00 AM 118 / -6 / @ 2:24:00 AM Valves Phase:DefaultPhase AV : 4.0 @ 8:35:52 AM AV Mean Gradient: 9.0 @ 8:35:52 AM Clinical Evaluation EBL: 5mL-10mL Procedural Details Procedure Consent Obtained. Admit Source: Out Patient. Pre-Procedure Time Out. Identified patient by full name and date of as verbalized by the patient/guarantor. Does the consent match the physician's order: Yes. Accurate & Complete Informed Consent: Yes. Inpatient/Outpatient History & Physical on Chart: Yes. If H&P is completed, is and addenduem needed: N/A; If yes, is the addendum complete: N/A. Visualize and Verify Site with Patient/Guarantor: N/A. Relevant Radiology Images available: N/A. Pre-op teaching completed and patient verbalized understanding. The risks, benefits, and alternatives of sedation and/or procedure were discussed by physician. The patient agrees to continue. Procedure started. Correct patient, site and procedure confirmed by cath team. PERRLA. Strong, equal hand ic designer custom bilaterally. Lungs clear x 5 lobes. IV Site on Arrival: 20 gauge in the left anticubital. Pre Procedural Pulses: bilateral dorsalis pedis was 2+. Pre Procedural Pulses: bilateral posterior tibial was 2+. Pre Procedural Pulses: bilateral radial was 2+. Oxygen started at 2liters/min via nasal canula. bilateral groins was prepped with chloroprep then draped in the usual sterile fashion. right radial was prepped with chloroprep then draped in the usual sterile fashion. Baseline sample Acquired. HR: 89 BPM. Physician notified. Physician arrived. Physician scrubbed in. Immediate Pre-Procedure Time Out. Correct Patient: Yes; Correct Procedure: Yes; Correct Site: Yes; Correct Patient Position: Yes; Correct Supplies: Yes; Dried Flammable Prep: Yes; Blood Products Available: N/A;. Lidocaine 1% infiltrated to the right radial. An attempt to gain access to the right radial artery was unsuccessful. Manual pressure was held as needed to stop the bleeding. Lidocaine 1% infiltrated to the right groin. Arterial access obtained with micropuncture set. A 6 beninese JL4 catheter in over wire. Multiple views taken of left coronary artery. Catheter out. A 6 beninese JR4 catheter in over wire. Multiple views taken of right coronary artery. Catheter out. A 6 beninese Angled Pig catheter in over wire. EDP Sample taken: LV 119/-10,13; HR: 82 BPM; SpO2: 99%. LV gram performed in [place] @ 10 mL/second for a total of 30 mL. EDP Sample taken: LV 117/-8,13; HR: 80 BPM; SpO2: 99%. Pullback taken: LV 118/-7,15; AO 115/65(89); Mean: 9mmHg, Peak to Peak: 4mmHg, SEP: 23sec/min; HR: 81 BPM; SpO2: 99%. catheter and wire out. [employer] [place] control vascular closure device 6F/7F lot#[id number] exp date: 11-30-2021 placed without complications. No signs or symptoms of hematoma noted. Sterile dressing applied per usual sterile fashion. PERRLA. Strong, equal hand ic designer custom bilaterally. No VTE prophylaxis required. Medication's Wasted: Lidocaine 1% = 10 mL. Medication's Wasted: Nitro = 50 mg. Medication's Wasted: Heparin = 1000 units. Total IV fluids: 75 mL. Contrast type used: Omnipaque 300 mgI/mL, 500 mL bottle. Contrast Material : Omnipaque 100 ml. A Perclose ([facility]) was successful obtaining hemostatsis at the Right Femoral artery insertion site. manual pressure held for 2min. [facility] Clinical Fraility Score: 3: Managing Well. Alumni Relations Manager Indications: Worsening Angina. Chest Pain Symptom Assessment: Atypical Angina. Cardiovascular Instability: N/A. Post-op diagnosis: normal CAD. Complications: none. Estimated blood loss: 5mL-10mL. Procedure completed. Patient transferred by bed to 1st floor. Vital chart was stopped. Access Site Site: Right Femoral artery Sheath Size: 6 Fr Hemostasis Method: Perclose ([facility]) Hemostasis Success: Successful Procedure Medications Start: 7:42 AM Stop: 7:42 AM Medication: Versed Amount: 1 mg Route: I.V. Start: 7:42 AM Stop: 7:42 AM Medication: Fentanyl Amount: 50 mcg Route: I.V. Start: 8:21 AM Stop: 8:21 AM Medication: Versed Amount: 1 mg Route: I.V. Start: 8:21 AM Stop: 8:21 AM Medication: Fentanyl Amount: 50 mcg Route: I.V. I, the attending physician, have reviewed and verified all procedure medications. Yes, all medications given per verbal order History/Risk Factors Hypertension: Yes Dyslipidemia: No Peripheral Arterial Disease (PAD): No Myocardial Infarction (OK): No Obesity: No Renal Disease: No Prior Interventions PCI: No CABG: No Valve Surgery: No Report Signatures Finalized by Tanvir Kruger MD on 03/10/2020 04:28 PM
--- NOTE | 2020-03-10 07:36 | W.PM.OPSUD ---
Surgery/Procedure H&P Update DATE OF PROCEDURE: March 10, 2020 DATE H&P PERFORMED: 03/09/20 H&P UPDATE INFORMATION: I have reviewed H&P completed within last 30 days, I have examined patient prior to procedure and No changes to prior documentation PREOP DIAGNOSIS: Worsening angina PRIMARY INDICATION FOR PROCEDURE: Worsening angina PLANNED PROCEDURE: COornary angiography with possible percutaneous coronary intervention PATIENT REASSESSED PRIOR TO SEDATION, WITH NO CHANGE NOTED: Yes PHYSICAL EXAM: alert, oriented x 3 and clear to auscultation bilaterally AIRWAY EVAL/ANESTHESIA PLAN: ASA II, ASA III, Risks, benefits & alternatives of sedation and/or procedure discussed and Patient agrees to continue as planned
--- NOTE | 2020-03-10 07:39 | PC.NURSE ---
patient off floor to lab animal technician.
[2020-03-10 09:24] LABS: Glucose Point of Care 368 mg/dL (70-110)
[2020-03-10] MEDS: lisinopril 10 mg Tablet PO (09:35)
[2020-03-10] MEDS: aspirin 81 mg EC Tablet PO (09:35)
[2020-03-10] MEDS: insulin glargine 100 units/1 mL 45 UNIT SUBCUT (09:36)
[2020-03-10] MEDS: gabapentin 300 mg Capsule 600 MG PO (09:36)
[2020-03-10 12:00] LABS: Glucose Point of Care 271 mg/dL (70-110)
--- NOTE | 2020-03-10 12:20 | PC.NURSE ---
Insulin sliding scale protocol is to give 8 units for BG of 271 patient reports it will be to much insulin for him patient requesting to take [address] roa notified and okayed to give 5 units
--- NOTE | 2020-03-10 13:12 | P.DS_ITS ---
Discharge Providers Date of Admission: 03/09/20 01:52 Date of Discharge: March 10, 2020 Attending Provider at Admission: Ayad Ivy MD Attending Provider at Discharge: Radha Shook MD Primary Care Provider: Harpal Montanez MD Diagnoses at Discharge Discharge Diagnosis (1) Chest pain: Status: Acute Qualifiers: Chest pain type: unspecified Qualified Code(s): R07.9 - Chest pain, unspecified (2) Hypertension: Status: Acute Qualifiers: Hypertension type: essential hypertension Qualified Code(s): I10 - Essential (primary) hypertension (3) Type 1 diabetes: Status: Acute Qualifiers: Diabetes mellitus complication status: with ophthalmic complications (4) Hyperlipidemia: Status: Acute Qualifiers: Hyperlipidemia type: mixed hyperlipidemia Qualified Code(s): E78.2 - Mixed hyperlipidemia Reason for Visit Reason for Visit: cp/high bp/right arm pain Hospital Course Discharge Summary: Cheo Martin is a 44 year old male with a past medical history of insulin-dependent type 1 diabetes, hypertension, hyperlipidemia, who presents to [facility] due to chest pain. he had a negative stress test about a year ago. Patient states that he received 3 nitro glycerin's, before the pain abated. EKG did not show any acute ST-T wave changes and his troponin remained without significant delta. Because of ongoing chest pain, cardiology service was consulted and patient underwent a coronary angiogram this morning which revealed normal coronaries. His chest pain is now resolved. Blood pressure has been well controlled during course of admission. Cause of chest pain is likely to be elevated blood pressure upon admission with systolic blood pressure up to 190. Amlodipine and Coreg were added to his antihypertensive regimen and he did well with this change. Blood pressure is well controlled on discharge. He is advised to follow-up with [facility] in 1 week with Monserrat Dickson and then in [address] Euceda. Physical Exam Narrative: EXAM NARRATIVE: GEN: Awake, alert and oriented, no acute distress CVS: S1S2 N RS: CTA B/L Abd: Soft, nt/nd , bs+ COPPER MINER: no focal neuro deficits Discharge Data Data Completed and Pending: Completed Studies During Hospitalization Category Date Time Status XR chest 1V robin ble [id number] Stat Exams 03/09/20 00:07 Completed CV echo complete* [id number] Routine Ultrasound 03/09/20 03:12 Completed Pending at discharge Category Date Time Status RESIDENTIAL PLUMBER request for service Urgent Exams 03/10/20 07:02 Ordered Complete Blood Co unt w/Auto AM LABS Lab 03/11/20 04:00 Ordered Complete Blood Co unt w/Auto AM LABS Lab 03/12/20 04:00 Ordered Comprehensive Met abolic Panel AM LA BS Lab 03/11/20 04:00 Ordered Comprehensive Met abolic Panel AM LA BS Lab 03/12/20 04:00 Ordered Magnesium AM LABS Lab 03/11/20 04:00 Ordered Magnesium AM LABS Lab 03/12/20 04:00 Ordered Phosphorus AM LAB S Lab 03/11/20 04:00 Ordered Phosphorus AM LAB S Lab 03/12/20 04:00 Ordered Labs from last 24 hours 03/10/20 03/10/20 03/10/20 11:45 09:18 06:52 WBC RBC Hgb Hct MCV MCH MCHC RDW Plt Count MPV Neut % (Auto) Lymph % (Auto) [place] % (Auto) Eos % (Auto) Baso % (Auto) Neut # (Auto) Lymph # (Auto) [place] # (Auto) Eos # (Auto) Baso # (Auto) Nucleated RBC % (a uto) Nucleated RBCs # Sodium Potassium Chloride Carbon Dioxide Anion Gap BUN Creatinine GFR Calculation Glucose POC Glucose 271 368 133 Calculated Osmolal ity Calcium Phosphorus Magnesium Total Bilirubin AST ALT Alkaline Phosphata se Total Protein Albumin Globulin Triglycerides Cholesterol LDL Cholesterol, C alc HDL Cholesterol LDL/HDL Ratio Cholesterol/HDL Ra jeanne SARS-CoV-2 Ag (Rap id) 03/10/20 03/10/20 03/10/20 04:33 04:14 04:14 WBC 5.9 RBC 4.01 L Hgb 12.5 Hct 37.7 L MCV 94.0 MCH 31.2 MCHC 33.2 RDW 11.8 L Plt Count 283 MPV 10.6 H Neut % (Auto) 56.1 Lymph % (Auto) 32.2 [place] % (Auto) 8.3 Eos % (Auto) 2.4 Baso % (Auto) 0.8 Neut # (Auto) 3.31 Lymph # (Auto) 1.9 [place] # (Auto) 0.5 Eos # (Auto) 0.1 Baso # (Auto) 0.1 Nucleated RBC % (a uto) 0 Nucleated RBCs # 0.0 Sodium 139 Potassium 3.4 L Chloride 104 Carbon Dioxide 28 Anion Gap 10.4 BUN 13 Creatinine 0.8 GFR Calculation 104.5 Glucose 135 H POC Glucose 143 Calculated Osmolal ity 290 Calcium 9.2 Phosphorus 4.1 Magnesium 2.0 Total Bilirubin 0.2 AST 37 ALT 53 H Alkaline Phosphata se 104 Total Protein 5.9 L Albumin 3.9 Globulin 2.0 Triglycerides Cholesterol LDL Cholesterol, C alc HDL Cholesterol LDL/HDL Ratio Cholesterol/HDL Ra jeanne SARS-CoV-2 Ag (Rap id) 03/10/20 03/09/20 03/09/20 04:14 23:00 19:26 WBC RBC Hgb Hct MCV MCH MCHC RDW Plt Count MPV Neut % (Auto) Lymph % (Auto) [place] % (Auto) Eos % (Auto) Baso % (Auto) Neut # (Auto) Lymph # (Auto) [place] # (Auto) Eos # (Auto) Baso # (Auto) Nucleated RBC % (a uto) Nucleated RBCs # Sodium Potassium Chloride Carbon Dioxide Anion Gap BUN Creatinine GFR Calculation Glucose POC Glucose 170 201 Calculated Osmolal ity Calcium Phosphorus Magnesium Total Bilirubin AST ALT Alkaline Phosphata se Total Protein Albumin Globulin Triglycerides 134 Cholesterol 139 LDL Cholesterol, C alc 64 HDL Cholesterol 48 L LDL/HDL Ratio 1.33 Cholesterol/HDL Ra jeanne 2.90 SARS-CoV-2 Ag (Rap id) 03/09/20 03/09/20 17:29 15:30 WBC RBC Hgb Hct MCV MCH MCHC RDW Plt Count MPV Neut % (Auto) Lymph % (Auto) [place] % (Auto) Eos % (Auto) Baso % (Auto) Neut # (Auto) Lymph # (Auto) [place] # (Auto) Eos # (Auto) Baso # (Auto) Nucleated RBC % (a uto) Nucleated RBCs # Sodium Potassium Chloride Carbon Dioxide Anion Gap BUN Creatinine GFR Calculation Glucose POC Glucose 228 Calculated Osmolal ity Calcium Phosphorus Magnesium Total Bilirubin AST ALT Alkaline Phosphata se Total Protein Albumin Globulin Triglycerides Cholesterol LDL Cholesterol, C alc HDL Cholesterol LDL/HDL Ratio Cholesterol/HDL Ra jeanne SARS-CoV-2 Ag (Rap id) Negative Vitals: Last Vital Signs Temp 98.4 F 03/10/20 12:54 Pulse 85 03/10/20 12:54 Resp 17 03/10/20 12:54 BP 137/90 03/10/20 12:54 Pulse Ox 97 11/08/20 12:54 Discharge Plan Discharge Patient Disposition: Home Condition: Stable Prescriptions: New aspirin 81 mg Tablet,Delayed Release (Dr/Ec) 81 mg PO DAILY Qty: 0 RF: 0 carvedilol 3.125 mg Tablet 3.125 mg PO Q12H 30 Days Qty: 60 RF: 0 amlodipine 10 mg Tablet 10 mg PO Q24H 30 Days Qty: 30 RF: 0 Continued valacyclovir 500 mg tablet 500 mg PO TID RF: 0 gabapentin 600 mg tablet 600 mg PO TID RF: 0 simvastatin 10 mg tablet 10 mg PO DAILY RF: 0 lisinopril 10 mg tablet 10 mg PO BID RF: 0 Lantus Solostar U-100 Insulin 100 unit/mL (3 mL) insulin pen 45 unit SUBCUT DAILY RF: 0 insulin lispro [Humalog KwikPen Insulin] 100 unit/mL insulin pen See Rx Instructions SUBCUT TID RF: 0 (DME) FreeStyle Mk 14 Day Cameron Misc See Rx Instructions .ROUTE .MEDSUPPLY Qty: 1 RF: 0 (DME) Dexcom G6 Art Objects Supervisor Misc See Rx Instructions .ROUTE .MEDSUPPLY Qty: 1 RF: 0 (DME) Dexcom G6 Sensor Device See Rx Instructions .ROUTE .MEDSUPPLY Qty: 3 RF: 3 (DME) Dexcom G6 Transmitter Device See Rx Instructions .ROUTE .MEDSUPPLY Qty: 9 RF: 3 Protonix 40 mg Tablet,Delayed Release (Dr/Ec) 40 mg PO DAILY RF: 0 Discharge Orders: Discharge Order (Routine); Ordered 03/10/20 Ordered By: Radha Shook Referrals: Support Services [Other] (Call for information or to make a referral for support services. This could be respite care, housekeeping, or meal prep. ) Harpal Montanez MD [Primary Care Provider] - 7-10 days ([facility] will be calling to schedule a hospital followup with Dr. Montanez to be seen in 7 to 10 days. If you don't hear from them by Wednesday, please give them a call. Thank you) Monserrat Dickson FNP [Nurse Practitioner] - 1 week ([facility] be calling to schedule a post procedure followup with VIANEY Licea to be seen in 1 week. If you don't hear from them by Wednesday, please give them a call. Thank you) Discharge Diet: Cardiac, Diabetic and Low Salt Discharge Activity: Resume usual activity Patient Instructions: Aspirin (By mouth), Chest Pain (DC), Low Sodium Diet (DC), Hypertensive Crisis (DC), Chest Pain Stoplight, Post Angiogram Home Care Instructions Discharge Attestations Time Spent in Discharge Care*: greater than 30 min Specific Discharge Activities: Specific discharge activities: educating patient and discussing with pcp/other providers Quality Metrics Clinical Quality Measures During this hospital stay, did patient experience: None Coding Level of Care Code Acute Demand Inspector for Bladimirg Fwd Diagnoses Chest pain R07.9 Chest pain type: unspecified Hypertension I10 Hypertension type: essential hypertension Type 1 diabetes E10.9 Diabetes mellitus complication status: with ophthalmic complications Hyperlipidemia E78.2 Hyperlipidemia type: mixed hyperlipidemia
--- NOTE | 2020-03-10 13:35 | PM.PN ---
Subjective Subjective: Interval history: Patient underwent coronary angiogram this morning with normal coronaries. Medications: Reviewed: Yes Medication Review Details: Current Medications Acetaminophen (Tylenol) 650 mg PO Q6H PRN PRN Reason: Mild/Mod Pain Or Temp >/= 101 Last Admin: 03/09/20 21:01 Dose: 650 mg Documented by: Al Hydrox/Mg Hydrox/Simethicone (Maalox) 30 ml PO Q15M PRN PRN Reason: INDIGESTION Alprazolam (Xanax) 0.25 mg PO TID PRN PRN Reason: ANXIETY Amlodipine Besylate (Norvasc) 10 mg PO Q24H [facility] Last Admin: 03/10/20 02:50 Dose: 10 mg Documented by: Aspirin (Aspirin Ec) 81 mg PO DAILY [facility] Last Admin: 03/10/20 09:35 Dose: 81 mg Documented by: Atorvastatin Calcium (Lipitor) 40 mg PO Q24H [facility] Last Admin: 03/10/20 02:50 Dose: 40 mg Documented by: Atropine Sulfate (Atropine) 0.5 mg IVP PRN PRN PRN Reason: Symptomatic bradycardia Carvedilol (Coreg) 3.125 mg PO Q12H [facility] Last Admin: 03/10/20 02:49 Dose: 3.125 mg Documented by: Dextrose (D50w) 25 ml IVP ONCE PRN; Protocol PRN Reason: hypoglycemia protocol Dextrose (D50w) 50 ml IVP PRN PRN; Protocol PRN Reason: hypoglycemia protocol Fentanyl (Sublimaze) 50 mcg IVP ONCE PRN PRN Reason: PAIN Gabapentin (Neurontin) 600 mg PO TID [facility] Last Admin: 03/10/20 09:36 Dose: 600 mg Documented by: Glucagon (Glucagen) 1 mg IM ONCE PRN; Protocol PRN Reason: Adult Acute Hypoglycemia Prot. Dextrose (D5w) 500 mls @ 100 mls/hr IV ONCE PRN; Protocol PRN Reason: Adult Acute Hypoglycemia Prot Sodium Chloride (Sodium Chloride 0.9%) 1,000 mls @ 100 mls/hr IV .Q10H [facility] Last Admin: 03/10/20 06:51 Dose: 100 mls/hr Documented by: Insulin Aspart (Novolog) 0 unit SUBCUT TIDWM [facility]; Protocol Last Admin: 03/10/20 12:19 Dose: 5 unit Documented by: Insulin Glargine (Lantus) 45 unit SUBCUT DAILY [facility] Last Admin: 03/10/20 09:36 Dose: 45 unit Documented by: Labetalol HCl (Trandate) 10 mg IVP Q4H PRN PRN Reason: for sbp>180 or DBP>100 hold if HR<60 Lisinopril (Prinivil) 10 mg PO BID [facility] Last Admin: 03/10/20 09:35 Dose: 10 mg Documented by: Magnesium Hydroxide (Milk Of Magnesia) 30 ml PO DAILY PRN PRN Reason: CONSTIPATION Morphine Sulfate (Morphine) 4 mg IVP Q4H PRN PRN Reason: SEVERE PAIN Naloxone HCl (Narcan) 0.1 mg IVP Q2M PRN PRN Reason: RESPIRATORY RATE < 8/MIN Nitroglycerin (Nitrostat) 0.4 mg SUBLINGUAL Q5M PRN PRN Reason: CHEST PAIN Last Admin: 03/09/20 00:50 Dose: 0.4 tab Documented by: Ondansetron HCl (Zofran) 4 mg IVP Q6H PRN PRN Reason: NAUSEA AND VOMITING Temazepam (Restoril) 15 mg PO BEDTIME PRN PRN Reason: INSOMNIA Vitals/I&O/Wt Last Vital Signs Temp 98.4 F 03/10/20 13:31 Pulse 85 03/10/20 13:31 Resp 17 03/10/20 13:31 BP 137/90 03/10/20 13:31 Pulse Ox 97 03/10/20 13:31 03/09/20 03/10/20 03/10/20 22:59 06:59 14:59 Intake Total 600 / 600 240 / 240 Balance 600 / 600 240 / 240 Weight last 48 hrs Weight 142 lb Physical Exam Narrative: EXAM NARRATIVE: Gen: lying in bed in NAD HEENT: PEERL, No pallor, icterus; left eye blindness+ Neck: No JVD RS: CTAB/L, No wheezing, rhonchi or rales CVS: S1, S2 normal , No murmur, rub or gallop E COMMERCE DIRECTOR: AAOx 3, No FND Ext: No cyanosis, edema; 2+ distal pulses, TR band in place Skin: No rashes Data : 03/10/20 04:14 03/10/20 04:14 A&P Assessment and plan (1) Chest pain: Recurrent episodes of chest pain since yesterday. -Multiple CAD risk factors. H/o massive CA in 1st paternal cousin at age 53 -normal stress test last year without any ischemia. -Normal coronaries on cardiac catheterization. -Chest pain could have been in setting of elevated blood pressure. Recommend looking for noncardiac etiology of chest discomfort as well. -Follow-up in 1 week and [facility] for site check and BMP with Ms. Dickson. -Follow-up with me in3 months. -Stable to be discharged home from cardiac standpoint. Status: Acute Qualifiers: Chest pain type: unspecified Qualified Code(s): R07.9 - Chest pain, unspecified (2) Hypertension: Pressure has been fairly controlled. -To new current medications. Status: Acute Qualifiers: Hypertension type: essential hypertension Qualified Code(s): I10 - Essential (primary) hypertension (3) Type 1 diabetes: Status: Acute Qualifiers: Diabetes mellitus complication status: with ophthalmic complications (4) Hyperlipidemia: Status: Acute Qualifiers: Hyperlipidemia type: mixed hyperlipidemia Qualified Code(s): E78.2 - Mixed hyperlipidemia Additional A&P Information Daibetic retinopathy Diabetic neuropathy Thank you for allowing me to participate in patient's care. Please feel free to call with questions or concerns. Attestations Medical Necessity Statement*: As per primary team. Time Spent in Patient Care: 16 - 35 minutes (>than 50% of time spent in counselling and/or direct pt care on unit). Coding Level of Care Code Acute Binder Roller for Kira Mcdaniel Diagnoses Chest pain R07.9 Chest pain type: unspecified Hypertension I10 Hypertension type: essential hypertension Type 1 diabetes E10.9 Diabetes mellitus complication status: with ophthalmic complications Hyperlipidemia E78.2 Hyperlipidemia type: mixed hyperlipidemia
== END 2020-03-10 14:38 | disposition home or self-care (01) ==
LOC: ER 03-09 02:15 → CSU 03-09 03:05
PROVIDERS: Emergency Medicine; Internal Medicine; Internal Medicine Cardiovascular Disease; Admitting Provider Family Medicine; PCP Family Medicine; Visit Provider Student in an Organized Health Care Education/Training Program
DX: R07.9 Chest pain, unspecified (principal); E78.2 Mixed hyperlipidemia; Z79.4 Long term (current) use of insulin; Z87.891 Personal history of nicotine dependence; E10.22 Type 1 diabetes mellitus with diabetic chronic kidney disease; I12.9 Hypertensive chronic kidney disease with stage 1 through stage 4 chronic kidney disease, or unspecified chronic kidney disease; N18.2 Chronic kidney disease, stage 2 (mild)
CPT/HCPCS: 12345; 36415; 36416; 71045; 80048; 80053; 80061; 81003; 82962; 83690; 83735; 84100; 84484; 85025; 87426; 93005; 93306; 93452; 96372; 99283; 99285; C1760; C1769; C1887; C1894; G0378; J1644; J1650; J1815 ×2; J2250; J3010; J3490; J7030; Q0163; Q9967

== ENCOUNTER → 2020-03-14 09:43 | Outpatient (BNVA) | payer MEDICAID, SELFPAY | PROVIDERS: PCP Family Medicine; Visit Provider Nurse Practitioner Family | DX: I10 Essential (primary) hypertension (principal) | CPT/HCPCS: 80048 ==

== ENCOUNTER → 2020-03-18 09:00 | Outpatient (BNVA) | payer MEDICAID, SELFPAY | PROVIDERS: PCP Family Medicine; Visit Provider Internal Medicine | DX: E10.22 Type 1 diabetes mellitus with diabetic chronic kidney disease (principal); N18.2 Chronic kidney disease, stage 2 (mild); E10.319 Type 1 diabetes mellitus with unspecified diabetic retinopathy without macular edema; Z79.4 Long term (current) use of insulin; E10.42 Type 1 diabetes mellitus with diabetic polyneuropathy; E10.649 Type 1 diabetes mellitus with hypoglycemia without coma; E78.2 Mixed hyperlipidemia | CPT/HCPCS: 99214 ==

== ENCOUNTER 2020-04-16 18:42 | Emergency (ER) | payer MEDICAID, SELFPAY ==
[2020-04-16 18:52] VITALS: BP 164/99; PULSE 86; RESP 18; TEMP 36.3; O2SAT 100; BMI 23.1
== END 2020-04-16 21:05 | disposition left against medical advice (07) ==
LOC: ER 19:12
PROVIDERS: PCP Family Medicine
DX: Z53.21 Procedure and treatment not carried out due to patient leaving prior to being seen by health care provider (principal)
CPT/HCPCS: 99281

== ENCOUNTER → 2020-05-13 09:17 | Outpatient (BNVA) | payer MEDICAID, SELFPAY | PROVIDERS: PCP Family Medicine; Visit Provider Internal Medicine | DX: E10.22 Type 1 diabetes mellitus with diabetic chronic kidney disease (principal); N18.2 Chronic kidney disease, stage 2 (mild); Z79.4 Long term (current) use of insulin; E10.319 Type 1 diabetes mellitus with unspecified diabetic retinopathy without macular edema; E10.42 Type 1 diabetes mellitus with diabetic polyneuropathy; E10.649 Type 1 diabetes mellitus with hypoglycemia without coma; E78.2 Mixed hyperlipidemia | CPT/HCPCS: 99215 ==

== ENCOUNTER 2020-05-28 10:51 | Outpatient (CLI) | payer MEDICAID, SELFPAY ==
[2020-05-28 11:28] LABS: Glucose 126 mg/dL (65-115)
[2020-05-28 15:21] LABS: Estmated Average Glucose 237; Hemoglobin A1C 9.9 % (4.0-6.0)
[2020-05-29 11:28] LABS: C-Peptide <0.10 ng/mL (0.80-3.85)
== END 2020-05-28 10:52 | disposition home or self-care (01) ==
LOC: LAB 10:54
PROVIDERS: PCP Family Medicine; Visit Provider Internal Medicine
DX: E10.22 Type 1 diabetes mellitus with diabetic chronic kidney disease (principal); N18.2 Chronic kidney disease, stage 2 (mild); E10.319 Type 1 diabetes mellitus with unspecified diabetic retinopathy without macular edema; Z79.4 Long term (current) use of insulin; E10.42 Type 1 diabetes mellitus with diabetic polyneuropathy; E10.649 Type 1 diabetes mellitus with hypoglycemia without coma; E78.2 Mixed hyperlipidemia; K04.7 Periapical abscess without sinus
CPT/HCPCS: 36415; 82947; 83036; 84681; 99214

== ENCOUNTER 2020-07-18 19:19 | Emergency (ER) | payer MEDICAID, SELFPAY ==
[2020-07-18 19:25] VITALS: BP 163/100; PULSE 102; RESP 18; TEMP 36.8; O2SAT 100; BMI 21.9
[2020-07-18 19:47] LABS: Glucose Point of Care 506 mg/dL (70-110)
--- NOTE | 2020-07-18 19:57 | W.ED.GENADLT ---
HPI - General Adult General: Chief complaint: General Medical Stated complaint: high blood sugar Time Seen by Provider: 07/18/20 19:50 History of Present Illness: HPI narrative: Patient is a 44-year-old male who comes to the ED with high blood sugars. Patient is a type I diabetic and takes long and short acting insulin daily to help with his blood sugars. He says for the past 2 weeks he has not been able to get his blood sugars under control and he states that he is sitting above 400 every time he checks his blood sugars for the past 2 weeks. He says that today all he ate was an apple and his blood sugar was up above 400. Patient is asymptomatic currently. Denies any fever, chills, nausea/vomiting, abdominal pain, bladder or bowel symptoms. Patient says he has been hospitalized for DKA in the past. Patient saw Dr. Dozier, the real estate site analyst to help him manage his diabetes on May 28 and they made some dosing adjustments to his insulin then. Patient also had some increased eye pressure in the left eye within the last week and went to eye doctor in [place] on Wednesday and they drilled some holes in his eye to relieve pressure. He still has a little bit of a headache on the left side of his head due to the glaucoma in his left eye. Associated symptoms: Reports headache(s) (Left side of head due to recent left eye glaucoma and surgery.); Deny chest pain, dyspnea, nausea, rash, palpitations or vomiting Review of Systems Const: Denies: fever(s), chills or fatigue Eyes: Denies: change in vision or eye discomfort ENMT: Denies: throat pain, odynophagia, nasal discharge or nasal congestion Card: Denies: chest pain, palpitations, edema, swelling of feet/ankles, dyspnea on exertion or orthopnea Resp: Denies: dyspnea, productive cough or non-productive cough GI: Denies: abdominal pain, nausea, vomiting, diarrhea, constipation or hematochezia : Denies: flank pain, difficulty urinating, dysuria or hematuria Musc: Denies: neck pain, back pain or extremity swelling Skin/Breast: Denies: rash or new lesions Neuro: Reports: headache(s) (Left side of head due to recent left eye glaucoma and surgery.); Denies: numbness in extremities or weakness in extremities PFS ED PFSH: Medical History Detached retina Hypertension Type 1 diabetes Surgical History History of detached retina repair Family History Mother Cancer thyroid and breast Unknown CAD (coronary artery disease) from [place] at 54 Social History Smoking and tobacco status: former smoker Alcohol intake: current Alcohol intake frequency: holidays/special occasions only Physical Exam Narrative: EXAM NARRATIVE: Patient is a 44-year-old male who appears healthy and in no acute distress or pain. Const: COMMON NORMALS: no acute distress, patient oriented x3, healthy appearing and alert GENERAL APPEARANCE: cooperative and comfortable HENMT: COMMON NORMALS: normocephalic HEAD & SCALP: normocephalic MOUTH: Normal oral and palatal mucosa present THROAT: posterior oropharynx normal and uvula midline Eye: CONJUNCTIVA: Yes conjunctival abnormal positive left subconjunctival hemorrhage (pt had Glaucoma and Eye doctor drilled some holes in eye on Wednesday) Neck/C-Spine: COMMON NORMALS: supple GENERAL: Yes normal visual inspection Resp: COMMON NORMALS: normal respiratory effort, No retractions, No use of accessory muscles and clear to auscultation bilaterally AUSCULTATION: clear to auscultation bilaterally Cardio: COMMON NORMALS: regular rate, regular rhythm, S1 normal heart sound present, S2 normal heart sound present, No gallops present (Cardio), No clicks present (Cardio), No murmurs present (Cardio) and Peripheral pulses 2+ throughout RATE: regular rate RHYTHM: regular rhythm HEART SOUNDS: S1 normal heart sound present and S2 normal heart sound present PERIPHERAL PULSES: Peripheral pulses 2+ throughout GI: COMMON NORMALS: Normal to inspection, nondistended, normoactive bowel sounds present, Soft to palpation, non-tender and no masses PALPATION: Yes Soft to palpation : COMMON NORMALS: Yes no CVA tenderness BLADDER/KIDNEY EXAM: Yes no CVA tenderness Back/Pelvis: COMMON NORMALS: no CVA tenderness Extremity: COMMON NORMALS: normal to inspection Neuro: COMMON NORMALS: patient oriented x3 and moves all extremities SENSORIUM/ORIENTATION: Yes alert Skin: GENERAL SKIN EXAM: dry skin Course Vital Signs: Vital signs: Vital Signs Temperature 98.2 F 07/18/20 22:59 Pulse Rate 96 07/18/20 22:59 Respiratory Rate 16 07/18/20 22:59 Blood Pressure 150/98 07/18/20 22:59 Pulse Oximetry 100 07/18/20 22:59 MDM - General Adult MDM Narrative: Medical decision making narrative: Patient is a 44-year-old male comes to the ED with hyperglycemia. Patient has type 1 diabetes and says that for the past 2 weeks his blood sugars have been reading over 400 and he has not been able to get them controlled. He is asymptomatic upon arrival and is showing no signs of any acute distress. Denies any nausea/vomiting, chest pain or shortness of breath. Patient's blood sugar upon arrival was 506. Patient was then given 1 L of IV fluids and 10 units of insulin through her IV. Patient's blood sugar dropped and got down to 280. CBC was unremarkable. Sodium was 130 but likely due to elevated blood glucose. The rest of CMP was unremarkable. Arterial blood gas was unremarkable. Patient remained asymptomatic and once his blood sugar got down to 280 he was ready for discharge. Return to ED precautions given. Follow-up with PCP in 7 to 10 days. Patient understood and agreed with plan. Lab Data: Attestation: I reviewed the patient's lab results. Labs: Lab Results 07/18/20 07/18/20 07/18/20 Range/Units 19:30 20:02 20:08 WBC 5.7 (4.0-10.0) 10^3/ uL RBC 4.43 (4.1-5.3) 10^6/u L Hgb 13.0 (11.7-16.6) g/dL Hct 38.1 L (42.0-52.0) % MCV 86.0 (80-94) fL MCH 29.3 (28.0-34.0) pg MCHC 34.1 (30.0-36.0) g/dL RDW 13.0 (12.1-15.1) % Plt Count 273 (130-400) 10^3/c mm MPV 10.9 H (7.4-10.4) fL Neut % (Auto) 60.8 % Lymph % (Auto) 30.1 % [place] % (Auto) 6.3 % Eos % (Auto) 1.2 % Baso % (Auto) 1.2 % Neut # (Auto) 3.47 (1.8-7.7) 10^3/u L Lymph # (Auto) 1.7 (0.8-4.8) 10^3/u L [place] # (Auto) 0.4 (0.2-0.9) 10^3/u L Eos # (Auto) 0.1 (0.0-0.8) 10^3/u L Baso # (Auto) 0.1 (0.0-0.1) 10^3/u L Nucleated RBC % (a uto) 0 % Nucleated RBCs # 0.0 /100WBC Specimen Type Arterial Sample Site Brachial, right ABG pH 7.37 (7.35-7.45) ABG pCO2 40.0 (35-45) mmHg ABG pO2 76.6 L (80.0-100.0) mmH g ABG HCO3 23.2 (22-26) mmol/L ABG Base Excess -1.9 (-2.0-2.0) mmol/ L Gerald Test N/a Hematocrit 41.2 L (42-52) % O2 Delivery Device Room air FiO2 21.0 % Passenger Train Braker ID Harkr Sodium (136-145) mmol/L Potassium (3.5-5.1) mmol/L Chloride (98-107) mmol/L Carbon Dioxide (22-29) mmol/L Anion Gap (5-19) BUN (6-20) mg/dL Creatinine (0.7-1.2) mg/dL GFR Calculation (90-130) mL/min Glucose (65-115) mg/dL POC Glucose 506 H* (70-110) mg/dL Calculated Osmolal ity (285-295) mOsm/k g Calcium (8.5-10.5) mg/dL Total Bilirubin (0.15-1.2) mg/dL AST (0-40) U/L ALT (0-41) U/L Alkaline Phosphata se (40-130) IU/L Total Protein (6.6-8.7) g/dL Albumin (3.5-5.2) g/dL Globulin (1.3-4.6) g/dL 07/18/20 07/18/20 07/18/20 Range/Units 20:08 21:14 21:54 WBC (4.0-10.0) 10^3/ uL RBC (4.1-5.3) 10^6/u L Hgb (11.7-16.6) g/dL Hct (42.0-52.0) % MCV (80-94) fL MCH (28.0-34.0) pg MCHC (30.0-36.0) g/dL RDW (12.1-15.1) % Plt Count (130-400) 10^3/c mm MPV (7.4-10.4) fL Neut % (Auto) % Lymph % (Auto) % [place] % (Auto) % Eos % (Auto) % Baso % (Auto) % Neut # (Auto) (1.8-7.7) 10^3/u L Lymph # (Auto) (0.8-4.8) 10^3/u L [place] # (Auto) (0.2-0.9) 10^3/u L Eos # (Auto) (0.0-0.8) 10^3/u L Baso # (Auto) (0.0-0.1) 10^3/u L Nucleated RBC % (a uto) % Nucleated RBCs # /100WBC Specimen Type Sample Site ABG pH (7.35-7.45) ABG pCO2 (35-45) mmHg ABG pO2 (80.0-100.0) mmH g ABG HCO3 (22-26) mmol/L ABG Base Excess (-2.0-2.0) mmol/ L Gerald Test Hematocrit (42-52) % O2 Delivery Device FiO2 % Passenger Train Braker ID Sodium 130 L (136-145) mmol/L Potassium 4.5 (3.5-5.1) mmol/L Chloride 95 L (98-107) mmol/L Carbon Dioxide 24 (22-29) mmol/L Anion Gap 15.5 (5-19) BUN 30 H (6-20) mg/dL Creatinine 1.0 (0.7-1.2) mg/dL GFR Calculation 80.8 L (90-130) mL/min Glucose 461 H (65-115) mg/dL POC Glucose 340 H 306 H (70-110) mg/dL Calculated Osmolal ity 296 H (285-295) mOsm/k g Calcium 9.5 (8.5-10.5) mg/dL Total Bilirubin 0.5 (0.15-1.2) mg/dL AST 14 (0-40) U/L ALT 27 (0-41) U/L Alkaline Phosphata se 86 (40-130) IU/L Total Protein 7.2 (6.6-8.7) g/dL Albumin 4.6 (3.5-5.2) g/dL Globulin 2.6 (1.3-4.6) g/dL 07/18/20 Range/Units 22:34 WBC (4.0-10.0) 10^3/ uL RBC (4.1-5.3) 10^6/u L Hgb (11.7-16.6) g/dL Hct (42.0-52.0) % MCV (80-94) fL MCH (28.0-34.0) pg MCHC (30.0-36.0) g/dL RDW (12.1-15.1) % Plt Count (130-400) 10^3/c mm MPV (7.4-10.4) fL Neut % (Auto) % Lymph % (Auto) % [place] % (Auto) % Eos % (Auto) % Baso % (Auto) % Neut # (Auto) (1.8-7.7) 10^3/u L Lymph # (Auto) (0.8-4.8) 10^3/u L [place] # (Auto) (0.2-0.9) 10^3/u L Eos # (Auto) (0.0-0.8) 10^3/u L Baso # (Auto) (0.0-0.1) 10^3/u L Nucleated RBC % (a uto) % Nucleated RBCs # /100WBC Specimen Type Sample Site ABG pH (7.35-7.45) ABG pCO2 (35-45) mmHg ABG pO2 (80.0-100.0) mmH g ABG HCO3 (22-26) mmol/L ABG Base Excess (-2.0-2.0) mmol/ L Gerald Test Hematocrit (42-52) % O2 Delivery Device FiO2 % Passenger Train Braker ID Sodium (136-145) mmol/L Potassium (3.5-5.1) mmol/L Chloride (98-107) mmol/L Carbon Dioxide (22-29) mmol/L Anion Gap (5-19) BUN (6-20) mg/dL Creatinine (0.7-1.2) mg/dL GFR Calculation (90-130) mL/min Glucose (65-115) mg/dL POC Glucose 280 H (70-110) mg/dL Calculated Osmolal ity (285-295) mOsm/k g Calcium (8.5-10.5) mg/dL Total Bilirubin (0.15-1.2) mg/dL AST (0-40) U/L ALT (0-41) U/L Alkaline Phosphata se (40-130) IU/L Total Protein (6.6-8.7) g/dL Albumin (3.5-5.2) g/dL Globulin (1.3-4.6) g/dL Discharge Plan Discharge Patient Disposition: Home Clinical Impression: Hyperglycemia Condition: Stable Prescriptions: No Action gabapentin 600 mg tablet 600 mg PO TID RF: 0 simvastatin 10 mg tablet 10 mg PO BEDTIME RF: 0 lisinopril 10 mg tablet 10 mg PO BID RF: 0 Lantus Solostar U-100 Insulin 100 unit/mL (3 mL) insulin pen See Rx Instructions .ROUTE .COMPLEX RF: 0 insulin lispro [Humalog KwikPen Insulin] 100 unit/mL insulin pen See Rx Instructions SUBCUT TID RF: 0 amlodipine 5 mg tablet 5 mg PO DAILY RF: 0 carvedilol [Coreg] 3.125 mg tablet 3.125 mg PO BID Qty: 180 RF: 2 (DME) Dexcom G6 Low Pressure Boiler Operator Misc See Rx Instructions .ROUTE .MEDSUPPLY Qty: 1 RF: 0 (DME) Dexcom G6 Sensor Device See Rx Instructions .ROUTE .MEDSUPPLY Qty: 3 RF: 3 (DME) Dexcom G6 Transmitter Device See Rx Instructions .ROUTE .MEDSUPPLY Qty: 9 RF: 3 pantoprazole [Protonix] 40 mg Tablet,Delayed Release (Dr/Ec) 40 mg PO DAILY RF: 0 Flintstones Multivitamin Tablet,Chewable 2 tab PO DAILY RF: 0 prednisolone acetate 1 % drops,suspension See Rx Instructions .ROUTE .COMPLEX RF: 0 polymyxin B sulf-trimethoprim 10,000 unit- 1 mg/mL drops See Rx Instructions .ROUTE .COMPLEX RF: 0 cefdinir 300 mg capsule 300 mg PO BID RF: 0 neomycin-polymyxin B-dexameth 3.5 mg/g-10,000 unit/g-0.1 % ointment See Rx Instructions .ROUTE .COMPLEX RF: 0 aspirin 81 mg tablet,delayed release (DR/EC) See Rx Instructions .ROUTE .COMPLEX RF: 0 Discharge Orders: Discharge ED (Routine); Ordered 07/18/20 Ordered By: Ford Ballard Referrals: Harpal Montanez MD [Primary Care Provider] - Discharge Diet: Diabetic Discharge Activity: Increase activity as tolerated Patient Instructions: Diabetic Hyperglycemia (ED) Activity Restrictions/Additional Instructions: Follow-up with medical provider as directed in 7 to 10 days for reevaluation. Continue taking all home medications as prescribed. Return to the ER or your medical provider if condition worsens. Please read and understand discharge instructions. If any questions, please ask. Coding Level of Care Code ED Costume Draper for Kira Fwd Exam Comprehensive
[2020-07-18 20:01] VITALS: BP 146/98; PULSE 100; RESP 16; O2SAT 100
[2020-07-18] MEDS: sodium chloride 0.9% 1,000 ML 999 ML IV ×2 (20:10→21:50)
[2020-07-18 20:12] LABS: ABG PH Result 7.37 (7.35-7.45); Arterial Blood Gas Hematocrit 41.2 % (42-52); Base Excess ABG -1.9 mmol/L (-2.0-2.0); Blood Gas Sample Type Arterial; HCO3 ABG 23.2 mmol/L (22-26); PO2 ABG 76.6 mmHg (80.0-100.0)
[2020-07-18 20:13] LABS: Blood Gas Operator Identificat HARKR; Blood Gas Sample Site Brachial, right; Oxygen Device ROOM AIR
[2020-07-18] MEDS: insulin regular-human 100 units/1 mL 10 UNIT IVP (20:20)
[2020-07-18 20:27] LABS: Basophils # 0.1 10^3/uL (0.0-0.1); Basophils % 1.2 %; Eosinophils # 0.1 10^3/uL (0.0-0.8); Eosinophils % 1.2 %; Hematocrit 38.1 % (42.0-52.0); Lymphocytes # 1.7 10^3/uL (0.8-4.8); Lymphocytes % 30.1 %; Mean Corpuscular HGB Conc 34.1 g/dL (30.0-36.0); Mean Corpuscular Hemoglobin 29.3 pg (28.0-34.0); Mean Platelet Volume 10.9 fL (7.4-10.4); Monocytes # 0.4 10^3/uL (0.2-0.9); Monocytes % 6.3 %; Neutrophils # 3.47 10^3/uL (1.8-7.7); Neutrophils % 60.8 %; Nucleated Red Blood Cells % 0 %; Platelet Count 273 10^3/cmm (130-400); Red Blood Count 4.43 10^6/uL (4.1-5.3); White Blood Count 5.7 10^3/uL (4.0-10.0)
--- NOTE | 2020-07-18 20:35 | PC.PHAR ---
pt states his girlfriend raghavendra sets up his medications but he states he knows what he takes-pt states his aspirin was put on hold till next wednesday due to his surgery-pt states he uses humalog ss tid-ext med history shows last filled on 08/04/19 30d/s for 10 units tid-pt states he uses lantus 45 units qam-ext med history shows last filled on 07/01/20 for 65 units daily-pt states the hctz and valacyclovir was dced-pt states he is only using the 2 eye drops and one eye ointment that are entered-pt states all other eye drops were dced-
[2020-07-18 20:49] LABS: Alanine Aminotransferase 27 U/L (0-41); Albumin Level 4.6 g/dL (3.5-5.2); Alkaline Phosphatase 86 IU/L (40-130); Anion Gap 15.5 (5-19); Aspartate Amino Transferase 14 U/L (0-40); Blood Urea Nitrogen 30 mg/dL (6-20); Calcium 9.5 mg/dL (8.5-10.5); Carbon Dioxide 24 mmol/L (22-29); Chloride 95 mmol/L (98-107); Globulin 2.6 g/dL (1.3-4.6); Glomerular Filtration Rate 80.8 mL/min (90-130); Glucose 461 mg/dL (65-115); Osmolality Calculated 296 mOsm/kg (285-295); Potassium 4.5 mmol/L (3.5-5.1); Sodium 130 mmol/L (136-145); Total Bilirubin 0.5 mg/dL (0.15-1.2); Total Protein 7.2 g/dL (6.6-8.7)
[2020-07-18 21:00] VITALS: BP 157/104; PULSE 98; RESP 16; O2SAT 99
[2020-07-18 21:18] LABS: Glucose Point of Care 340 mg/dL (70-110)
[2020-07-18 21:57] LABS: Glucose Point of Care 306 mg/dL (70-110)
--- NOTE | 2020-07-18 22:37 | PC.NURSE ---
blood glucose is 280, patient nurse and PA are aware.
[2020-07-18 22:40] LABS: Glucose Point of Care 280 mg/dL (70-110)
[2020-07-18] MEDS: ketorolac 30 mg/mL INJ IVP (22:56)
[2020-07-18 22:59] VITALS: BP 150/98; PULSE 96; RESP 16; TEMP 36.8; O2SAT 100
== END 2020-07-18 23:01 | disposition home or self-care (01) ==
PROVIDERS: Emergency Medicine; Emergency Provider Physician Assistant; PCP Family Medicine
DX: E10.65 Type 1 diabetes mellitus with hyperglycemia (principal); Z79.4 Long term (current) use of insulin; Z79.82 Long term (current) use of aspirin; I10 Essential (primary) hypertension; Z87.891 Personal history of nicotine dependence
CPT/HCPCS: 36416; 36600; 80053; 82803; 82962; 85025; 96361; 96374; 96375; 99284; J1815; J1885; J7030

== ENCOUNTER 2020-08-02 10:05 | Emergency (ER) | payer MEDICAID, SELFPAY ==
[2020-08-02 10:08] VITALS: BP 166/121; PULSE 93; RESP 15; TEMP 36.8; O2SAT 99; BMI 22.7
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
--- NOTE | 2020-08-02 10:21 | XR_ITS ---
WS: [id number] Portable AP chest, 08/02/2020 Clinical Data: chest pain Comparison: Portable chest, 03/09/2020. Findings: No nodules, masses or effusions are seen. The heart is normal. The pulmonary vascularity is not increased. No pneumonia or pneumothorax is seen. There is an electronic device overlying the rig ht upper quadrant. XR/XR chest 1V portable [id number] Impression: Negative chest.
[2020-08-02 10:29] LABS: Basophils % 0.7 %; Eosinophils # 0.1 10^3/uL (0.0-0.8); Eosinophils % 2.2 %; Hematocrit 38.2 % (42.0-52.0); Hemoglobin 12.7 g/dL (11.7-16.6); Lymphocytes # 1.7 10^3/uL (0.8-4.8); Lymphocytes % 30.9 %; Mean Corpuscular HGB Conc 33.2 g/dL (30.0-36.0); Mean Corpuscular Volume 90.1 fL (80-94); Monocytes # 0.5 10^3/uL (0.2-0.9); Monocytes % 8.4 %; Neutrophils # 3.08 10^3/uL (1.8-7.7); Neutrophils % 57.4 %; Nucleated Red Blood Cells % 0 %; Platelet Count 315 10^3/cmm (130-400); Red Blood Count 4.24 10^6/uL (4.1-5.3); Red Cell Distribution Width 13.1 % (12.1-15.1); White Blood Count 5.4 10^3/uL (4.0-10.0)
[2020-08-02] MEDS: HYDROcodone-acetaminophen 5-325 mg Tablet 1 TAB PO (10:34)
[2020-08-02 10:49] LABS: Alanine Aminotransferase 66 U/L (0-41); Albumin Level 4.4 g/dL (3.5-5.2); Alkaline Phosphatase 107 IU/L (40-130); Anion Gap 13.8 (5-19); Aspartate Amino Transferase 26 U/L (0-40); Blood Urea Nitrogen 20 mg/dL (6-20); Calcium 8.8 mg/dL (8.5-10.5); Carbon Dioxide 26 mmol/L (22-29); Chloride 96 mmol/L (98-107); Globulin 2.5 g/dL (1.3-4.6); Glomerular Filtration Rate 80.8 mL/min (90-130); Glucose 402 mg/dL (65-115); Osmolality Calculated 291 mOsm/kg (285-295); Potassium 4.8 mmol/L (3.5-5.1); Sodium 131 mmol/L (136-145); Total Bilirubin 0.2 mg/dL (0.15-1.2); Total Protein 6.9 g/dL (6.6-8.7)
[2020-08-02 12:05] VITALS: BP 130/97; PULSE 85; RESP 18; O2SAT 96
== END 2020-08-02 12:07 | disposition home or self-care (01) ==
PROVIDERS: Emergency Provider Nurse Practitioner Family; PCP Family Medicine
DX: S16.1XXA Strain of muscle, fascia and tendon at neck level, initial encounter (principal); S39.012A Strain of muscle, fascia and tendon of lower back, initial encounter; S60.211A Contusion of right wrist, initial encounter; Z79.4 Long term (current) use of insulin; Z79.82 Long term (current) use of aspirin; I10 Essential (primary) hypertension; E10.9 Type 1 diabetes mellitus without complications; Z87.891 Personal history of nicotine dependence; V89.2XXA Person injured in unspecified motor-vehicle accident, traffic, initial encounter
CPT/HCPCS: 71045; 72072; 72100; 72125; 73090; 80053; 85025; 99283

== ENCOUNTER 2020-09-18 10:17 | Outpatient (CLI) | payer MEDICAID, SELFPAY ==
--- NOTE | 2020-09-18 10:26 | MR_ITS ---
WS: [id number] MRI LUMBAR SPINE NONCONTRAST TECHNIQUE: Sagittal T1, T2 and STIR imaging. Axial T1 and T2 imaging. CLINICAL INFORMATION: ACUTE BACK PAIN FINDINGS: Mild lumbar curve. No acute compression. No high-grade central canal stenosis. L1-L2: Normal. L2-L3: Normal. L3-L4: No significant disc bulging. Spinal canal and foramen are patent. Mild facet arthropathy. L4-L5: No significant disc bulging. Mild facet arthropathy. Spinal canal and foramen are patent. L5-S1: No significant disc bulging. Mild facet arthropathy. Spinal canal and foramen are patent. Visualized pelvic bony structures: Normal. Paravertebral soft tissues: Normal. MR/MR lumbar spine wo con* [id number] IMPRESSION: 1. Mild lumbar curve. No acute compression. No high-grade central canal stenos is. 2. No significant disc extrusions or protrusions. 3. Mild facet arthropathy more prominent at L4-5. 4. No significant spinal canal or foraminal narrowing.
== END 2020-09-18 10:18 | disposition home or self-care (01) ==
LOC: RADSHAW 10:20
PROVIDERS: PCP Family Medicine; Visit Provider Family Medicine
DX: M54.5 Low back pain (principal); M47.816 Spondylosis without myelopathy or radiculopathy, lumbar region
CPT/HCPCS: 72148

== ENCOUNTER 2020-10-28 09:57 | Outpatient (CLI) | payer MEDICAID, SELFPAY ==
--- NOTE | 2020-10-28 10:25 | MR_ITS ---
WS: [id number] MRI RIGHT SHOULDER HISTORY: RIGHT SHOULDER PAIN COMPARISON: None available. TECHNIQUE: Multiplanar sequences of the shoulder joint are submitted. Mild increased signal through the AC ligament. Very small amount of increased fluid and signal in the subacromial bursa. No significant encroachment upon the supraspinatus. There is an os acromiale with a small amount of fluid along the synchondrosis. Biceps tendon is normal and in good position. Acute nondisplaced fracture through the superior posterior humeral head involving the greater tuberos ity. No displacement of this fracture fragment but there is edema along the fracture line. Very sligh t impaction along the posterior lateral humeral head. Supraspinatus tendon inserts into the humeral h ead fracture. There is fraying along the surfaces of the tendon but no definite tear identified. Oste ophyte from the distal undersurface of the acromion with mild encroachment upon the distal supraspina tus. Advanced degenerative changes at the glenohumeral joint. Avulsion of the posterior labrum. Complete t ear of the posterior labrum. MR/MR shoulder RT wo con* [id number] IMPRESSION: 1. Nondisplaced fracture with mild impaction along the posterior superior luis miguel ral head. 2. Torn and avulsed posterior labrum. 3. Os acromiale with increase fluid along the synchondrosis. 4. No definite rotator cuff tear. 5. Advanced degenerative changes at the glenohumeral joint. 6. Distal undersurface 5 mm acromial osteophyte with minimal encroachment upon the distal supraspinatus.
== END 2020-10-28 09:58 | disposition home or self-care (01) ==
PROVIDERS: PCP Family Medicine; Visit Provider Family Medicine
DX: M25.511 Pain in right shoulder (principal); S42.391A Other fracture of shaft of right humerus, initial encounter for closed fracture; S43.491A Other sprain of right shoulder joint, initial encounter; X58.XXXA Exposure to other specified factors, initial encounter
CPT/HCPCS: 73221

== ENCOUNTER 2020-12-16 11:41 | Outpatient (CLI) | payer MEDICAID, SELFPAY ==
[2020-12-16 12:11] LABS: Estmated Average Glucose 301; Hemoglobin A1C 12.1 % (4.0-6.0)
== END 2020-12-16 11:42 | disposition home or self-care (01) ==
PROVIDERS: PCP Family Medicine; Visit Provider Internal Medicine
DX: N18.2 Chronic kidney disease, stage 2 (mild) (principal); Z79.4 Long term (current) use of insulin
CPT/HCPCS: 36415; 83036

== ENCOUNTER → 2020-12-19 09:51 | Outpatient (BNVA) | payer MEDICAID, SELFPAY | PROVIDERS: PCP Family Medicine; Referring Provider Family Medicine; Visit Provider Anesthesiology Pain Medicine | DX: M54.2 Cervicalgia (principal); M47.816 Spondylosis without myelopathy or radiculopathy, lumbar region; S49.91XA Unspecified injury of right shoulder and upper arm, initial encounter; X58.XXXA Exposure to other specified factors, initial encounter; M25.511 Pain in right shoulder; Z87.891 Personal history of nicotine dependence | CPT/HCPCS: 99204 ==

== ENCOUNTER → 2020-12-25 08:10 | Outpatient (BNVA) | payer MEDICAID, SELFPAY | PROVIDERS: PCP Family Medicine; Referring Provider Family Medicine; Visit Provider Podiatrist Foot & Ankle Surgery | DX: M25.571 Pain in right ankle and joints of right foot (principal) | CPT/HCPCS: 73630 ==

== ENCOUNTER 2021-01-22 12:49 | Outpatient (CLI) | payer MEDICAID, SELFPAY ==
--- NOTE | 2021-01-22 13:03 | XR_ITS ---
WS: [id number] Right hand, 3 views, 01/22/2021 Clinical Data: ARTHRITIS Comparison: None. Findings: No fractures or dislocations are seen. The soft tissues are unremarkable. The joint space s are normal No periarticular demineralization or calcifications are seen. XR/XR hand RT min 3V* [id number] Impression: Negative right hand.
--- NOTE | 2021-01-22 13:03 | XR_ITS ---
WS: [id number] Left hand, 3 views, 01/22/2021 Clinical Data: ARTHRITIS Comparison: None. Findings: No fractures or dislocations are seen. The soft tissues are unremarkable. The joint spaces are normal No periarticular demineralization or calcifications are seen. XR/XR hand LT min 3V* [id number] Impression: Negative left hand.
== END 2021-01-22 12:50 | disposition home or self-care (01) ==
LOC: RAD 12:54
PROVIDERS: PCP Family Medicine; Visit Provider Family Medicine
DX: M19.90 Unspecified osteoarthritis, unspecified site (principal)
CPT/HCPCS: 73130

== ENCOUNTER 2021-01-29 12:32 | Emergency (ER) | payer MEDICAID, SELFPAY ==
[2021-01-29 12:53] VITALS: BP 133/82; PULSE 113; RESP 18; TEMP 37; O2SAT 97; BMI 21.9
--- NOTE | 2021-01-29 13:29 | ED_ITS ---
HPI - Nausea/Vomiting/Diarrhea General: Chief complaint: Nausea/Vomiting/Diarrhea Stated complaint: HAD TEETH PULLED 01.28:THROWING UP BLOOD TODAY Time Seen by Provider: 01/29/21 13:25 History of Present Illness: HPI Narrative: This patient is a 45-year-old male who presents to the emergency department complaint of nausea vomiting this morning. Patient states that he had his front teeth pulled due to poor dentition yesterday. Supposed be rinsing his mouth out with some mouthwash. Patient states that he noticed when he got sick at his stomach this morning started at 7 AM it was bloody tinged. Patient has some mild bleeding from his sockets from where his teeth were removed. Patient states he just makes him sick at his stomach. Otherwise patient does not appear to be acutely sick MD elicited complaint: nausea and vomiting Description of vomiting: blood-streaked Associated nausea: Yes Associated symtoms: Reports nausea; Denies anxiety, change in vision, chest pain, dysuria, fatigue, headache(s) or palpitations Review of Systems General: Reports: 10 or more systems reviewed and unremarkable except in HPI and below Const: Denies: fever(s), chills, body aches or fatigue Eyes: Denies: change in vision or blurry vision ENMT: Reports: bleeding gums and dental pain; Denies: throat pain, hoarseness or mouth pain Card: Denies: chest pain, palpitations, irregular heart rhythm, edema, swelling of feet/ankles or lightheadedness Resp: Denies: dyspnea, productive cough, non-productive cough, wheezing or pain on inspiration GI: Reports: nausea and vomiting; Denies: abdominal pain : Denies: flank pain, dysuria, urinary frequency, urinary urgency or urinary hesitancy Musc: Denies: neck pain, back pain, extremity pain, extremity swelling, joint pain, joint swelling, joint redness, joint warmth or limited range of motion Skin/Breast: Denies: rash, pruritus, erythema or skin tenderness Neuro: Denies: headache(s), numbness in extremities or weakness in extremities Psych: Denies: anxiety or depression PFS ED PFSH: Medical History Detached retina Hypertension Type 1 diabetes Surgical History History of detached retina repair Family History Mother Cancer thyroid and breast Unknown CAD (coronary artery disease) from [place] at 55 Social History Smoking and tobacco status: never smoked Alcohol intake: current Alcohol intake frequency: holidays/special occasions only Physical Exam Const: COMMON NORMALS: no acute distress, average body habitus, patient oriented x3, no limitations, healthy appearing, alert and well nourished HENMT: COMMON NORMALS: normocephalic, atraumatic, hearing grossly normal bilaterally, external ears normal, EAC's normal, TM's normal bilaterally, Normal external nose present, Normal nasal mucous membranes and turbinates present, moist oral mucous membranes, oropharynx normal, dentition normal and gingiva normal HEAD & SCALP: normocephalic and atraumatic NOSE: Normal external nose present and Normal nasal mucous membranes and turbinates present EXTERNAL EAR: Yes external ears normal EXTERNAL AUDITORY CANAL: EAC's normal TYMPANIC MEMBRANE: TM's normal bilaterally TEETH & GINGIVA: Yes gingiva abnormal (For tooth extraction in the front teeth. Inflamed gums mild bleeding ) and Yes poor dentition Neck/C-Spine: COMMON NORMALS: full ROM, no lymphadenopathy, supple, no meningeal signs, no JVD, Thyroid normal and No carotid bruits THYROID: Thyroid normal Chest: COMMONS NORMALS: normal inspection of the chest, normal palpation of entire chest wall, normal inspection of the breasts and normal palpation of the breasts Breast/axilla inspection: Yes normal inspection of the breasts BREAST/AXILLA PALPATION: Yes normal palpation of the breasts Resp: COMMON NORMALS: normal respiratory effort, No retractions, No use of accessory muscles, clear to auscultation bilaterally and percussion normal AUSCULTATION: clear to auscultation bilaterally PERCUSSION: percussion normal Cardio: COMMON NORMALS: no JVD, regular rate, regular rhythm, S1 normal heart sound present, S2 normal heart sound present, No gallops present (Cardio), No clicks present (Cardio), No murmurs present (Cardio), No rub (Cardio) and Perip heral pulses 2+ throughout RATE: regular rate RHYTHM: regular rhythm HEART SOUNDS: S1 normal heart sound present and S2 normal heart sound present PERIPHERAL PULSES: Peripheral pulses 2+ throughout GI: COMMON NORMALS: Normal to inspection, nondistended, normoactive bowel sounds present, Soft to palpation, non-tender, No hepatosplenomegaly present, no masses and no bruits PALPATION: Yes Soft to palpation and Yes No hepatosplenomegaly present : COMMON NORMALS: Yes no CVA tenderness BLADDER/KIDNEY EXAM: Yes no CVA tenderness Back/Pelvis: COMMON NORMALS: no CVA tenderness, thoracic and lumbar spine normal to inspection, no thoracic nor lumbar tenderness, thoraco-lumbar ROM normal and straight leg raise negative bilaterally Extremity: COMMON NORMALS: normal to inspection, full ROM, capillary refill normal, no joint enlargement, no clubbing, cyanosis or edema, no calf tenderness and no pedal edema Neuro: COMMON NORMALS: patient oriented x3 SENSORIUM/ORIENTATION: Yes alert MENINGEAL SIGNS: Yes no meningeal signs Course Reevaluation(s): Reevaluation #1: Patient states he is much improved after Zofran. Patient will be discharged home with a prescription of Zofran. Encourage p.o. fluids. Continue with your salt water gargles and washes per dental treatment. Encourage medications as instructed. Follow-up with dentist as needed. Time: 14:08 Vital Signs: Vital signs: Vital Signs Temperature 97.5 F L 01/29/21 13:37 Pulse Rate 102 H 01/29/21 13:37 Respiratory Rate 16 01/29/21 13:37 Blood Pressure 128/85 01/29/21 13:37 Pulse Oximetry 97 01/29/21 13:37 MDM - Nausea/Vomiting/Diarrhea MDM Narrative: Medical decision making narrative: This patient is a 45-year-old male who presents to the emergency department complaint of nausea vomiting this morning. Patient states that he had his front teeth pulled due to poor dentition yesterday. Supposed be rinsing his mouth out with some mouthwash. Patient states that he noticed when he got sick at his stomach this morning started at 7 AM it was bloody tinged. Patient has some mild bleeding from his sockets from where his teeth were removed. Patient states he just makes him sick at his stomach. Otherwise patient does not appear to be acutely sick Patient states he is much improved after Zofran. Patient will be discharged home with a prescription of Zofran. Encourage p.o. fluids. Continue with your salt water gargles and washes per dental treatment. Encourage medications as instructed. Follow-up with dentist as needed. Discharge Plan Discharge Patient Disposition: Home Clinical Impression: Nausea & vomiting, Gingival bleeding, Status post tooth extraction Condition: Stable Prescriptions: New ondansetron 4 mg tablet,disintegrating 4 mg PO DAILY PRN (Reason: nausea and vomiting) 4 Days Qty: 10 RF: 0 No Action gabapentin 600 mg tablet 600 mg PO TID RF: 0 simvastatin 10 mg tablet 10 mg PO BEDTIME RF: 0 lisinopril 10 mg tablet 10 mg PO BID RF: 0 carvedilol [Coreg] 3.125 mg tablet 3.125 mg PO BID Qty: 180 RF: 2 amlodipine 2.5 mg tablet 2.5 mg PO DAILY Qty: 90 RF: 2 (DME) Dexcom G6 Neonatal Intensive Care Unit Nurse Misc See Rx Instructions .ROUTE .MEDSUPPLY Qty: 1 RF: 0 (DME) Dexcom G6 Transmitter Device See Rx Instructions .ROUTE .MEDSUPPLY Qty: 9 RF: 3 hydrocortisone [Cortisone (hydrocortisone)] 1 % cream 1 applic topical TID PRN (Reason: skin irritation) Qty: 28.4 RF: 0 insulin lispro [Humalog KwikPen Insulin] 100 unit/mL insulin pen See Rx Instructions SUBCUT TID Qty: 15 RF: 3 (DME) Dexcom G6 Sensor Device See Rx Instructions .ROUTE .MEDSUPPLY Qty: 3 RF: 3 Lantus Solostar U-100 Insulin 100 unit/mL (3 mL) insulin pen See Rx Instructions .ROUTE .COMPLEX Qty: 15 RF: 3 pantoprazole [Protonix] 40 mg Tablet,Delayed Release (Dr/Ec) 40 mg PO DAILY RF: 0 Flintstones Multivitamin Tablet,Chewable 2 tab PO DAILY RF: 0 prednisolone acetate 1 % drops,suspension See Rx Instructions .ROUTE .COMPLEX RF: 0 polymyxin B sulf-trimethoprim 10,000 unit- 1 mg/mL drops See Rx Instructions .ROUTE .COMPLEX RF: 0 neomycin-polymyxin B-dexameth 3.5 mg/g-10,000 unit/g-0.1 % ointment See Rx Instructions .ROUTE .COMPLEX RF: 0 aspirin 81 mg tablet,delayed release (DR/EC) See Rx Instructions .ROUTE .COMPLEX RF: 0 methocarbamol 750 mg tablet 750 mg PO Q6H Qty: 10 RF: 0 Discharge Orders: Discharge ED (Routine); Ordered 01/29/21 Ordered By: Alex Chow Referrals: Harpal Montanez MD [Primary Care Provider] - Discharge Diet: Advance as tolerated Discharge Activity: Resume usual activity Patient Instructions: Opioid Safety Activity Restrictions/Additional Instructions: Encourage p.o. fluids. Continue with your salt water gargles and washes per dental treatment. Encourage medications as instructed. Follow-up with dentist as needed. Coding Level of Care Code ED Metallurgical Technician for Chg Fwd Exam Comprehensive
[2021-01-29 13:37] VITALS: BP 128/85; PULSE 102; RESP 16; TEMP 36.4; O2SAT 97
[2021-01-29] MEDS: ondansetron 4 MG Tablet PO (13:41)
[2021-01-29 14:07] VITALS: BP 109/79; PULSE 102; RESP 16; TEMP 37; O2SAT 97
[2021-01-29 14:12] VITALS: BP 117/77; PULSE 100; RESP 16; TEMP 37; O2SAT 97
== END 2021-01-29 14:15 | disposition home or self-care (01) ==
PROVIDERS: Emergency Provider Emergency Medicine; PCP Family Medicine
DX: R11.2 Nausea with vomiting, unspecified (principal); K06.8 Other specified disorders of gingiva and edentulous alveolar ridge; Z98.818 Other dental procedure status; Z79.82 Long term (current) use of aspirin; Z79.4 Long term (current) use of insulin; I10 Essential (primary) hypertension; E10.9 Type 1 diabetes mellitus without complications
CPT/HCPCS: 99282; Q0162

== ENCOUNTER → 2021-03-04 09:52 | Outpatient (BNVA) | payer MEDICARE, MEDICAID, SELFPAY | PROVIDERS: PCP Family Medicine; Visit Provider Internal Medicine | DX: M25.50 Pain in unspecified joint (principal); M54.2 Cervicalgia; M54.50 Low back pain, unspecified; G89.29 Other chronic pain; E10.42 Type 1 diabetes mellitus with diabetic polyneuropathy; Z79.4 Long term (current) use of insulin; Z87.891 Personal history of nicotine dependence; L40.9 Psoriasis, unspecified; Z11.59 Encounter for screening for other viral diseases; M45.0 Ankylosing spondylitis of multiple sites in spine | CPT/HCPCS: 36415; 72040; 72202; 73522; 82306; 82533; 82550; 82607; 82728; 82784; 83516; 83540; 83735; 84100; 84403; 84443; 84550; 86704; 86803; 86812; 87340; 99204 ==

== ENCOUNTER 2021-03-04 13:56 | Outpatient (CLI) | payer MEDICARE, MEDICAID, SELFPAY ==
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
--- NOTE | 2021-03-04 14:13 | XRR_ITS ---
PROCEDURE INFORMATION: Exam: XR Bilateral Sacroiliac Joints Exam date and time: 03/04/2021 2:13 PM Age: 45 years old Clinical indication: Condition or disease; Other: Psoriasis, unspecified; Additional info: L40.9 - psoriasis, unspecified TECHNIQUE: Imaging protocol: XR Bilateral XR of the sacroiliac joints. Views: 3 or more views. Total images: 3 COMPARISON: CR XR hip BI 3-4V wo/w pel [id number] 03/04/2021 2:36 PM FINDINGS: Bones/joints: Normal. No acute fracture. Soft tissues: Normal. XR/XR sacroiliac jts m 3V [id number] IMPRESSION: No acute findings. Radiation Dose CTDIVOL = (mGy): DLP = (mGy-cm)
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
[2021-03-04 15:38] LABS: Creatine Phosphokinase 298 U/L (39-308); Magnesium 1.8 mg/dL (1.7-2.3); Phosphorus 3.4 mg/dL (2.5-4.5); Testosterone Total 345.4 ng/dL (249-836); Thyroid Stimulating Hormone 1.31 uIU/mL (0.27-4.20)
[2021-03-04 15:45] LABS: Cortisol Random 6.97 ug/dL (2.47-19.5); Hepatitis B Core AB, Total Non-Reactive (Nonreactive); Hepatitis B Surface Antigen Non-Reactive (Nonreactive); Hepatitis C Virus Antibody Non-Reactive (Nonreactive)
[2021-03-04 17:01] LABS: Ferritin 299 ng/mL (30-400); Iron 71 ug/dL (59-158)
[2021-03-04 17:16] LABS: 25 Hydroxy Vitamin D 14 ng/mL (30-100); Vitamin B12 533 pg/mL (232-1245)
[2021-03-06 08:37] LABS: HLA-B27 NEGATIVE (NEGATIVE)
[2021-03-06 16:32] LABS: Immunoglobulin A 122 mg/dL (47-310)
== END 2021-03-04 13:57 | disposition home or self-care (01) ==
LOC: RAD 14:01
PROVIDERS: PCP Family Medicine; Visit Provider Internal Medicine
DX: M25.50 Pain in unspecified joint (principal); M54.2 Cervicalgia; L40.9 Psoriasis, unspecified; M45.0 Ankylosing spondylitis of multiple sites in spine; Z11.59 Encounter for screening for other viral diseases
CPT/HCPCS: 36415; 72040; 72202; 73522; 82306; 82533; 82550; 82607; 82728; 82784; 83516; 83540; 83735; 84100; 84403; 84443; 84550; 86704; 86803; 86812; 87340

== ENCOUNTER → 2021-03-10 08:36 | Outpatient (BNVA) | payer MEDICARE, MEDICAID, SELFPAY | PROVIDERS: PCP Family Medicine; Visit Provider Internal Medicine | DX: E10.319 Type 1 diabetes mellitus with unspecified diabetic retinopathy without macular edema (principal); E10.42 Type 1 diabetes mellitus with diabetic polyneuropathy; E10.22 Type 1 diabetes mellitus with diabetic chronic kidney disease; E78.2 Mixed hyperlipidemia; N18.2 Chronic kidney disease, stage 2 (mild); Z79.4 Long term (current) use of insulin | CPT/HCPCS: 99214 ==

== ENCOUNTER → 2021-05-08 09:30 | Outpatient (BNVA) | payer MEDICARE, MEDICAID, SELFPAY | PROVIDERS: PCP Family Medicine; Visit Provider Nurse Practitioner Family | DX: Z20.822 Contact with and (suspected) exposure to COVID-19 (principal) | CPT/HCPCS: 87426 ==

== ENCOUNTER 2021-07-29 14:06 | Outpatient (CLI) | payer MEDICARE, MEDICAID, SELFPAY ==
--- NOTE | 2021-07-29 14:15 | MR_ITS ---
WS: [id number] MRI RIGHT SHOULDER NONCONTRAST TECHNIQUE: Sagittal T2, coronal T1, T2 and proton density imaging. Axial gradient PDE imaging. CLINICAL INFORMATION: S/P SHOULDER SURGERY COMPARISON: MRI October 28, 2020 FINDINGS: Moderate degenerative arthritis AC joint with mild edema. Mild downsloping acromion. Slight subacromial spurring. Chronic thinning of the distal supraspinatus. Tendinopathy in the distal supra spinatus. Tiny undersurface tear in the distal supraspinatus new from previous. Normal infraspinatus. Normal teres minor. Subscapularis appears intact. Interval biceps tendon surgery with normal biceps tendon in the bicipital groove. Susceptibility artifact degrades some images at the rotator interval. Postoperative changes involving the glenoid. Diffuse edema involving the anterior inferior glenoid w ith cortical irregularity and suspected subacute healing fracture with callus formation. This can be followed up with noncontrast CT. Recommend correlation with history of trauma. Degenerative fraying of the glenoid labrum. Chronic appearing posterior labral tear is unchanged. Adv anced degenerative arthritis glenohumeral joint with subchondral cystic change involving the glenoid. Interval healing of the previously described impacted nondisplaced fracture along the posterior supe rior humeral head. Stable os acromiale. MR/MR shoulder RT wo con* [id number] IMPRESSION: 1. Interval postoperative changes relocation of the biceps tendon in the bicip ital groove. This has a normal postoperative appearance. 2. Diffuse edema involving the inferior-anterior glenoid with suspected subacu te healing fracture involving the anterior inferior glenoid. Recommend correlat ion with history of trauma. This can be followed up with CT. Some of this may b e postoperative edema. 3. Moderate degenerative arthritis AC joint with mild edema and slight subacro mial spurring. 4. Tendinopathy in the distal supraspinatus with a tiny undersurface tear in t he distal supraspinatus which appears new from previous. 5. Rotator cuff is otherwise intact. 6. Interval healing of the previously described nondisplaced posterior lateral humeral head fracture. 7. Chronic avulsion of the posterior labrum unchanged. 8. Advanced degenerative arthritis at the glenohumeral joint with subchondral cystic change 9. No other significant changes compared to previous.
== END 2021-07-29 14:07 | disposition home or self-care (01) ==
LOC: RAD 14:08
PROVIDERS: PCP Family Medicine; Visit Provider Physician Assistant
DX: Z98.890 Other specified postprocedural states (principal); R60.0 Localized edema; M19.011 Primary osteoarthritis, right shoulder
CPT/HCPCS: 73221

== ENCOUNTER 2021-09-11 22:34 | Emergency (ER) | payer MEDICARE, MEDICAID, SELFPAY ==
[2021-09-11 23:00] VITALS: BP 189/100; PULSE 99; RESP 18; TEMP 36.7; O2SAT 99; BMI 23.3
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
[2021-09-12] MEDS: tetanus-dipt-pertussis 0.5 mL SDV IM (01:12)
[2021-09-12 01:41] VITALS: BP 145/102; PULSE 93; RESP 18; O2SAT 95
--- NOTE | 2021-09-12 10:36 | DCPLANNER ---
Addendum entered by Greta Rae 09/18/21 13:39: Patient had a follow up appointment scheduled with ortho for 09.16.21 - patient did attend appointment. Original Note: regional merchandising manager had message to schedule a follow up appointment for patient with ortho. regional merchandising manager sent patients information to the front office staff at ortho. Patients information will be printed and reviewed. Clinic will call patient with appointment information.
== END 2021-09-12 01:42 | disposition home or self-care (01) ==
PROVIDERS: Emergency Provider Emergency Medicine; PCP Family Medicine
DX: S62.515A Nondisplaced fracture of proximal phalanx of left thumb, initial encounter for closed fracture (principal); S61.213A Laceration without foreign body of left middle finger without damage to nail, initial encounter; W37.8XXA Explosion and rupture of other pressurized tire, pipe or hose, initial encounter; Z23 Encounter for immunization
CPT/HCPCS: 73130; 90471; 90715; 99283

== ENCOUNTER → 2021-09-16 13:42 | Outpatient (BNVA) | payer MEDICARE, MEDICAID, SELFPAY | PROVIDERS: PCP Family Medicine; Visit Provider Nurse Practitioner Family | DX: S62.515A Nondisplaced fracture of proximal phalanx of left thumb, initial encounter for closed fracture (principal); W37.8XXA Explosion and rupture of other pressurized tire, pipe or hose, initial encounter | CPT/HCPCS: 73130; 99204 ==

== ENCOUNTER 2021-09-16 15:47 | Outpatient (CLI) | payer MEDICARE, MEDICAID, SELFPAY | END 2021-09-16 15:48 | disposition home or self-care (01) | LOC: SPT 15:48 | PROVIDERS: PCP Family Medicine; Visit Provider Nurse Practitioner Family | DX: Z46.89 Encounter for fitting and adjustment of other specified devices (principal); S62.515D Nondisplaced fracture of proximal phalanx of left thumb, subsequent encounter for fracture with routine healing; X58.XXXD Exposure to other specified factors, subsequent encounter | CPT/HCPCS: 97760; L3809 ==

== ENCOUNTER → 2021-09-18 19:01 | Outpatient (BNVA) | payer MEDICARE, MEDICAID, SELFPAY | PROVIDERS: PCP Family Medicine; Visit Provider Family Medicine | DX: S62.515A Nondisplaced fracture of proximal phalanx of left thumb, initial encounter for closed fracture (principal); X58.XXXA Exposure to other specified factors, initial encounter | CPT/HCPCS: 73120 ==

== ENCOUNTER → 2021-09-19 08:56 | Outpatient (BNVA) | payer MEDICARE, MEDICAID, SELFPAY | PROVIDERS: PCP Family Medicine; Visit Provider Nurse Practitioner Family | DX: S62.515A Nondisplaced fracture of proximal phalanx of left thumb, initial encounter for closed fracture (principal); X58.XXXA Exposure to other specified factors, initial encounter | CPT/HCPCS: 99213 ==

== ENCOUNTER → 2021-12-22 08:55 | Outpatient (BNVA) | payer MEDICARE, MEDICAID, SELFPAY | PROVIDERS: PCP Family Medicine; Visit Provider Podiatrist Foot & Ankle Surgery | DX: G62.9 Polyneuropathy, unspecified (principal); R21 Rash and other nonspecific skin eruption; M20.41 Other hammer toe(s) (acquired), right foot; M20.42 Other hammer toe(s) (acquired), left foot; L60.3 Nail dystrophy; E10.8 Type 1 diabetes mellitus with unspecified complications; Z79.4 Long term (current) use of insulin | CPT/HCPCS: 99214 ==

== ENCOUNTER → 2022-03-05 09:14 | Outpatient (BNVA) | payer MEDICARE, MEDICAID, SELFPAY | PROVIDERS: PCP Family Medicine; Visit Provider Podiatrist Foot & Ankle Surgery | DX: E10.8 Type 1 diabetes mellitus with unspecified complications (principal); Z79.4 Long term (current) use of insulin; G62.9 Polyneuropathy, unspecified; R21 Rash and other nonspecific skin eruption; M20.41 Other hammer toe(s) (acquired), right foot; M20.42 Other hammer toe(s) (acquired), left foot; L60.3 Nail dystrophy | CPT/HCPCS: 99213 ==

== ENCOUNTER → 2022-06-18 09:16 | Outpatient (BNVA) | payer MEDICARE, MEDICAID, SELFPAY | PROVIDERS: PCP Family Medicine; Visit Provider Podiatrist Foot & Ankle Surgery | DX: G62.9 Polyneuropathy, unspecified (principal); R21 Rash and other nonspecific skin eruption; M20.41 Other hammer toe(s) (acquired), right foot; M20.42 Other hammer toe(s) (acquired), left foot; L60.3 Nail dystrophy; E10.69 Type 1 diabetes mellitus with other specified complication; Z79.4 Long term (current) use of insulin | CPT/HCPCS: 99213 ==

== ENCOUNTER → 2022-08-03 15:00 | Outpatient (BNVA) | payer MEDICARE, MEDICAID, SELFPAY | PROVIDERS: PCP Family Medicine; Visit Provider Podiatrist Foot & Ankle Surgery | DX: E10.42 Type 1 diabetes mellitus with diabetic polyneuropathy (principal); Z79.4 Long term (current) use of insulin; R21 Rash and other nonspecific skin eruption; G62.9 Polyneuropathy, unspecified; M20.41 Other hammer toe(s) (acquired), right foot; M20.42 Other hammer toe(s) (acquired), left foot; L60.3 Nail dystrophy | CPT/HCPCS: 99214 ==

== ENCOUNTER → 2022-10-20 13:37 | Outpatient (BNVA) | payer MEDICARE, MEDICAID, SELFPAY | PROVIDERS: PCP Family Medicine; Visit Provider Internal Medicine Cardiovascular Disease | DX: I10 Essential (primary) hypertension (principal); E10.319 Type 1 diabetes mellitus with unspecified diabetic retinopathy without macular edema; E78.2 Mixed hyperlipidemia; E10.42 Type 1 diabetes mellitus with diabetic polyneuropathy; Z79.4 Long term (current) use of insulin | CPT/HCPCS: 99214 ==

== ENCOUNTER → 2022-10-30 13:55 | Outpatient (BNVA) | payer MEDICARE, MEDICAID, SELFPAY | PROVIDERS: PCP Family Medicine; Visit Provider Podiatrist Foot & Ankle Surgery | DX: E10.42 Type 1 diabetes mellitus with diabetic polyneuropathy (principal); Z79.4 Long term (current) use of insulin; R21 Rash and other nonspecific skin eruption; G62.9 Polyneuropathy, unspecified; M20.41 Other hammer toe(s) (acquired), right foot; M20.42 Other hammer toe(s) (acquired), left foot; L60.3 Nail dystrophy | CPT/HCPCS: 99214 ==

== ENCOUNTER → 2023-03-16 07:25 | Outpatient (BNVA) | payer MEDICARE, MEDICAID, SELFPAY | PROVIDERS: PCP Family Medicine; Visit Provider Podiatrist Foot & Ankle Surgery | DX: E10.42 Type 1 diabetes mellitus with diabetic polyneuropathy (principal); G62.9 Polyneuropathy, unspecified; R21 Rash and other nonspecific skin eruption; M20.41 Other hammer toe(s) (acquired), right foot; M20.42 Other hammer toe(s) (acquired), left foot; M20.32 Hallux varus (acquired), left foot; Z79.4 Long term (current) use of insulin | CPT/HCPCS: 99213 ==

== ENCOUNTER → 2023-04-20 13:30 | Outpatient (BNVA) | payer MEDICARE, MEDICAID, SELFPAY | PROVIDERS: PCP Family Medicine; Visit Provider Internal Medicine Cardiovascular Disease | DX: I10 Essential (primary) hypertension (principal); E10.319 Type 1 diabetes mellitus with unspecified diabetic retinopathy without macular edema; E78.2 Mixed hyperlipidemia; E10.42 Type 1 diabetes mellitus with diabetic polyneuropathy; Z79.4 Long term (current) use of insulin | CPT/HCPCS: 99214 ==

== ENCOUNTER → 2023-04-21 09:40 | Outpatient (BNVA) | payer MEDICARE, MEDICAID, SELFPAY | PROVIDERS: PCP Family Medicine; Visit Provider Nurse Practitioner Family | DX: R05.9 Cough, unspecified (principal); U07.1 COVID-19 | CPT/HCPCS: 87426 ==

== ENCOUNTER 2023-06-08 20:27 | Emergency (ER) | payer MEDICARE, MEDICAID, SELFPAY ==
--- NOTE | 2023-06-08 20:28 | XRR_ITS ---
PROCEDURE INFORMATION: Exam: XR Right Hand Exam date and time: 06/08/2023 8:36 PM Age: 47 years old Clinical indication: Injury or trauma; Fall; Blunt trauma (contusions or hematomas); Hand; Right TECHNIQUE: Imaging protocol: Radiologic exam of the right hand. Views: 3 or more views. COMPARISON: No relevant prior studies available. FINDINGS: Bones/joints: Normal. Soft tissues: Normal. XR/XR hand RT min 3V* [id number] IMPRESSION: No acute findings.
[2023-06-08 20:30] VITALS: BP 169/97; PULSE 89; RESP 16; TEMP 36.1; O2SAT 99; BMI 25.5
--- NOTE | 2023-06-08 20:37 | XRR_ITS ---
PROCEDURE INFORMATION: Exam: XR Left Wrist Exam date and time: 06/08/2023 8:38 PM Age: 47 years old Clinical indication: Injury or trauma; Fall; Blunt trauma (contusions or hematomas); Wrist; Left; Additional info: Fall, pain TECHNIQUE: Imaging protocol: Radiologic exam of the left wrist. Views: 3 or more views. COMPARISON: CR ( EX, ) 09/12/2021 12:16 AM FINDINGS: Bones/joints: Arthritic change involves the 1st carpometacarpal joint. No fracture. Soft tissues: Normal. XR/XR wrist LT min 3V* [id number] IMPRESSION: I see no acute abnormality.
[2023-06-08 22:00] VITALS: PULSE 80; RESP 16; O2SAT 94
--- NOTE | 2023-06-08 22:00 | ED_ITS ---
HPI - Extremity Problem General: Chief complaint: Extremity Injury, Upper Stated complaint: right hand injury Time Seen by Provider: 06/08/23 20:34 Source: patient Mode of arrival: ambulatory Limitations: no limitations History of Present Illness: Patient presents to the emergency department today for evaluation treatment of injury sustained after falling while trying to climb a fence today. Patient states that earlier today he was trying to catch his dog. He was trying to climb over a fence and started to fall. Patient reports reaching out and catching himself but states he impacted the fence. He is not exactly sure how his hands or fingers impacted the pins but, throughout the day has had worsening pain at the first carpometacarpal joint on the right hand and pain to the left thumb, lateral hand, lateral wrist, and lateral distal forearm. Patient has actually developed some swelling in the left forearm and wrist region. He was concerned of a fracture and comes in for evaluation. He states as a child he had a fracture of the left wrist and a few years ago had a left thumb fracture requiring surgery. Review of Systems General: Reports: 10 or more systems reviewed and unremarkable except in HPI and below PFSH ED PFSH: Medical History Pneumonia Hypertension Detached retina Type 1 diabetes Surgical History History of thumb surgery Status post shoulder surgery History of detached retina repair Family History Mother Cancer thyroid and breast Unknown CAD (coronary artery disease) from [place] at 55 Diabetes Father Hyperlipidemia Grandfather Hyperlipidemia Father Rheumatoid arthritis Social History Smoking and tobacco/nicotine status: former use of tobacco/nicotine Alcohol intake: current Alcohol intake frequency: holidays/special occasions only Substance/Drug Use: never Physical Exam Const: COMMON NORMALS: no acute distress, patient oriented x3 and alert HENMT: COMMON NORMALS: normocephalic, atraumatic and hearing grossly normal bilaterally HEAD & SCALP: normocephalic and atraumatic Eye: COMMON NORMALS: Equal, round and reactive pupils present, EOMs intact bilaterally and conjunctivae normal CONJUNCTIVA: Yes conjunctivae normal PUPIL: Yes Equal, round and reactive pupils present Neck/C-Spine: COMMON NORMALS: full ROM and no JVD Lymph: LYMPHATIC: no lymphadenopathy noted Resp: COMMON NORMALS: normal respiratory effort, No retractions and No use of accessory muscles Cardio: COMMON NORMALS: no JVD and regular rate RATE: regular rate Extremity: NARRATIVE EXTREMITY EXAM: Patient has full range of motion to the fingers, wrist, elbows of the upper extremities bilaterally. However, patient has tenderness on palpation to the right, first, metacarpal carpal joint. No snuffbox tenderness. He also has pain of the proximal left thumb extending along the lateral portion of the left hand down the first metacarpal region into the left first carpometacarpal joint. He also has reproducible tenderness on palpation to the distal, lateral left forearm region with some associated swelling noted. Patient is Mitch positive. No findings of gamekeeper's thumb Neuro: COMMON NORMALS: patient oriented x3 SENSORIUM/ORIENTATION: Yes alert Psych: COMMON NORMALS: mental status grossly normal, Normal thought process present, cooperative and normal affect THOUGHT PROCESS: Normal thought process present Skin: COMMON NORMALS: no rashes or lesions noted and turgor normal GENERAL SKIN EXAM: no rashes or lesions noted and turgor normal Course Vital Signs: Vital signs: Vital Signs Temperature 97 F L 06/08/23 20:30 Pulse Rate 89 06/08/23 20:30 Respiratory Rate 16 06/08/23 20:30 Blood Pressure 169/97 06/08/23 20:30 Pulse Oximetry 99 06/08/23 20:30 MDM - Extremity (Nontraumatic) Medical Decision Making Patient's x-rays today are negative for signs of any acute fracture. However, patient does have signs of arthritis at many of the joints in his hands and fingers. Explained he may be tender and sore with swelling present for a while just due to the fact that he has arthritis and sustained an injury. However, I have concerns for a de Quervain's injury to the left hand given his location of discomfort and physical exam findings. We were able to provide him a thumb spica brace here in the emergency department with a prescription for topical Voltaren gel. We discussed the importance of continuing to apply ice throughout the day. I also requested a follow-up appointment with orthopedics for an overall recheck to determine whether patient requires further imaging, further e valuation, or continued treatment. Discussed all this with the patient who verbalized understanding and agreement to treatment plan. Differential Diagnosis Unlikely herpes zoster, gout, cellulitis, superficial thrombophlebitis or deep venous thrombosis of upper extremity Lab Data Radiology Impressions Hand X-Ray 06/08/23 20:28 IMPRESSION: No acute findings. Wrist X-Ray 06/08/23 20:37 IMPRESSION: I see no acute abnormality. All radiology interpretation(s) finalized by discharge Discharge Plan Discharge Patient Disposition: Home Clinical Impression: De Quervain's tenosynovitis Condition: Stable Prescriptions: New Aleve (diclofenac) 1 % gel 2 g topical QID Qty: 100 0RF Rx Instructions: apply to single wrist/hand No Action hydrocodone-acetaminophen 5-325 mg tablet 1 tab PO Q6H PRN gabapentin 600 mg tablet 600 mg PO TID simvastatin 10 mg tablet 10 mg PO BEDTIME lisinopril 10 mg tablet 10 mg PO BID amlodipine 2.5 mg tablet 5 mg PO DAILY Evgeny Dyer U-300 Insulin 300 unit/mL (1.5 mL) insulin pen 45 unit SUBCUT DAILY PRN clobetasol 0.025 % cream 1 applic topical BID PRN (DME) infusion set for insulin pump Infusion Set See Rx Instructions .Route Rx Instructions: As directed carvedilol 6.25 mg tablet 6.25 mg PO BID Qty: 180 2RF Rx Instructions: must administer with a meal/food (DME) Diabetic Shoes with 3 pairs of Inserts See Rx Instructions .Route .MEDSUPPLY Qty: 1 0RF Rx Instructions: As directed by the Germain Berman insulin lispro [Humalog KwikPen Insulin] 100 unit/mL insulin pen See Rx Instructions SUBCUT TID Qty: 15 3RF Rx Instructions: sliding scale SUBCUT three times daily 80-150 give 6 units 150 ? 250 give 7 units 251 or higher give 8 units (DME) FreeStyle Mk 2 Shiloh Misc See Rx Instructions .Route Qty: 1 0RF Rx Instructions: As directed (DME) FreeStyle Mk 2 Sensor Kit See Rx Instructions .Route Qty: 2 3RF Rx Instructions: As directed pantoprazole [Protonix] 40 mg tablet,delayed release (DR/EC) 40 mg PO BID aspirin 81 mg tablet,delayed release (DR/EC) See Rx Instructions .ROUTE .COMPLEX Rx Instructions: see pharmacy comments methocarbamol 750 mg tablet 750 mg PO Q6H Qty: 10 0RF Rx Instructions: take 1 PO every 8 hours as needed for muscle spasms, do not drive or operate heavy machinery with use of medication Discharge Orders: Discharge ED (Routine); Ordered 06/08/23 Ordered By: Kaci Ruby Referrals: Harpal Montanez MD [Primary Care Provider] - Discharge Diet: Usual diet Discharge Activity: Limit activity as instructed Patient Instructions: De Quervain Disease (ED) Activity Restrictions/Additional Instructions: X-rays today show no signs of any bony fracture. You do have significant arthritis in your hands which makes any type of injury more painful, longer to h eal, and typically has more swelling. However, the description and location of the pain you have to your left forearm, wrist, and down the thumb is suspicious for de Quervain's injury. This connective tissue can oftentimes be overstretched during an injury causing pain and discomfort-especially with range of motion through the wrist and the thumb. There is a special brace would like you to wear throughout the day and I have requested a follow-up appointment with orthopedics for general recheck here in the next week or so. If symptoms have significantly improved or resolved, they may be able to release you back to full normal activity and you will not need to wear the brace any longer however, if you continue to have issues in that area they may wish to pursue further imaging or longer bracing. We recommend removing your brace multiple times throughout the day to apply ice for 15 to 20 minutes. I have also provided you a topical medication to help with pain and inflammation. You do not have to bathe or sleep with the brace on. Coding Level of Care Code ED Mottler Operator for Kira Mcdaniel
--- NOTE | 2023-06-09 09:05 | DCPLANNER ---
Message sent to Ortho for follow up
== END 2023-06-08 22:01 | disposition home or self-care (01) ==
PROVIDERS: Emergency Provider Physician Assistant; PCP Family Medicine
DX: M65.4 Radial styloid tenosynovitis [de Quervain] (principal); Z79.82 Long term (current) use of aspirin; Z79.4 Long term (current) use of insulin; Z87.891 Personal history of nicotine dependence; I10 Essential (primary) hypertension; E10.9 Type 1 diabetes mellitus without complications
CPT/HCPCS: 73110; 73130; 99283

== ENCOUNTER → 2023-06-18 09:07 | Outpatient (BNVA) | payer MEDICARE, MEDICAID, SELFPAY | PROVIDERS: PCP Family Medicine; Referring Provider Physician Assistant; Visit Provider Physician Assistant | DX: M18.11 Unilateral primary osteoarthritis of first carpometacarpal joint, right hand (principal); M65.4 Radial styloid tenosynovitis [de Quervain] | CPT/HCPCS: 20600; 99213; J2795; J3301 ==

== ENCOUNTER → 2023-07-13 07:54 | Outpatient (BNVA) | payer MEDICARE, MEDICAID, SELFPAY | PROVIDERS: PCP Family Medicine; Visit Provider Podiatrist Foot & Ankle Surgery | DX: G62.9 Polyneuropathy, unspecified; R21 Rash and other nonspecific skin eruption; M20.41 Other hammer toe(s) (acquired), right foot; M20.42 Other hammer toe(s) (acquired), left foot; M20.32 Hallux varus (acquired), left foot; E11.42 Type 2 diabetes mellitus with diabetic polyneuropathy; Z79.4 Long term (current) use of insulin | CPT/HCPCS: 99213 ==

== ENCOUNTER → 2023-11-19 12:03 | Outpatient (BNVA) | payer MEDICARE, MEDICAID, SELFPAY | PROVIDERS: PCP Family Medicine; Visit Provider Podiatrist Foot & Ankle Surgery | DX: G62.9 Polyneuropathy, unspecified; R21 Rash and other nonspecific skin eruption; M20.41 Other hammer toe(s) (acquired), right foot; M20.42 Other hammer toe(s) (acquired), left foot; M20.32 Hallux varus (acquired), left foot; E11.42 Type 2 diabetes mellitus with diabetic polyneuropathy; Z79.4 Long term (current) use of insulin | CPT/HCPCS: 99213 ==

== ENCOUNTER → 2023-12-21 09:02 | Outpatient (BNVA) | payer MEDICARE, MEDICAID, SELFPAY | PROVIDERS: PCP Family Medicine; Visit Provider Physician Assistant | DX: M18.11 Unilateral primary osteoarthritis of first carpometacarpal joint, right hand (principal) | CPT/HCPCS: 99213 ==

== ENCOUNTER → 2024-04-06 15:31 | Outpatient (BNVA) | payer MEDICARE, SELFPAY | PROVIDERS: PCP Family Medicine; Visit Provider Internal Medicine Cardiovascular Disease | DX: I10 Essential (primary) hypertension (principal); E78.2 Mixed hyperlipidemia; E10.319 Type 1 diabetes mellitus with unspecified diabetic retinopathy without macular edema; Z87.891 Personal history of nicotine dependence; Z79.4 Long term (current) use of insulin | CPT/HCPCS: 99214 ==